=== PATIENT | female | born 1965 | race Caucasian/White ===

== ENCOUNTER 2024-07-16 07:37 | Inpatient (IN) ==
--- OUTSIDE RECORDS SUMMARY | 2024-07-16 07:51 | External Medical Summary | Summary of Care ---
Author Name Unknown Organization [facility] Address [address] [place] [address] Phone [phone] Care Team Providers Care Volunteer Patient Representative Name Role Phone BabarCherie mcnulty Maria Luz VIZCAINO Primary Care Provider Reason for Visit * Reason Comments Skin Check Pt presents today fo r her annual FBSC, pt denies having any new areas of concern at this time.Hx of DSAP, Multiple pigmented nevi, LSC Encounter Details Date Type Department Care Team (Latest Contact Info) Description 05/25/2024 12:40 PM EST Office [facility] [address] [facility] [place] [address] Enid Peralta PA-C [address] [place] [address] Disseminated superficial actinic porokeratosis (DSAP)*; Skin exam, screening for cancer; Seborrheic keratosis Allergies Active Allergy Reactions Criticality Noted Date Comments Sulfa Antibiotics 11/05/1999 Rash as a child documented as of this encounter (statuses as of 05/25/2024) Medications Cetirizine HCl 10 MG Oral Tablet Take 1 Tablet by mouth in the morning. Take 1 tab by mouth daily.. 9 Active Escitalopram Oxalate 20 MG Oral Tablet (Lexapro) Take 1 Tablet by mouth in the morning. 90 Tablet 3 4 Active Calcium 1000 + D 1000-20 MG-MCG Oral Tablet (Calcium Carb-Cholecalcif rhett) Take by mouth. Activ e Tums Extra Strength 750 750 MG Oral Tablet Chewable (calcium CARBonate) Take 1 Tablet by mouth in the morning. Active Multi-Day Oral Tablet Take 1 Tablet by mouth in the morning. With collagen. Active Betamethasone Dipropionate 0.05 % External Cream (Diprosone) Apply topically to affected area 2 times a day. To affected areas under breasts and abdomen 15 g 3 4 Active Levothyroxine Sodium 112 MCG Oral Tablet (Levoxyl) TAKE 1 TABLET BY MOUTH DAILY IN THE MORNING AT LEAST 30 MINS PRIOR TO BREAKFAST OR OTHER MEDS. 90 Tablet 3 4 Active Wegovy 0.25 MG/0.5ML Subcutaneous Solution Auto-injector (Semaglutide-Jose ght Management)Indic ations:Class 2 severe obesity due to excess calories with serious comorbidity and body mass index (BMI) of 38.0 to 38.9 in adult (HCC) Inject 0.25 mg under the skin once a week. 2 mL 5 4 Active Additional Information Patient not taking.Reported on 05/25/2024 Melatonin 5 MG Oral Tablet Take 1 Tablet by mouth at bedtime. Active Gentle Iron 28-60-0.008-0.4 MG Oral Capsule (Fe Bisgly-Vit C-Vit B12-FA) Take by mouth. A [facility] Hospital, Clinic, or Other Facility Administered Medication Ordered Dose Route Frequency Start Date End Date Status Albuterol Sulfate (Proventil) (2.5 MG/3ML) 0.083% inhalation solution 2.5 mgIndications:JACKSON (dyspnea on exertion) 2.5 mg NEBULIZER ONCE PRN 12/10/2023 12/09/2024 Act ashley documented as of this encounter (statuses as of 05/25/2024) Active Problems Problem Noted Date Diagnosed Date Screening for lipid disorders 12/10/2023 JACKSON (dyspnea on exertion) 12/10/2023 Restless leg 09/04/2023 Body mass index (BMI) 39.0-39.9, adult 4 At risk for osteoporosis 09/04/2023 Hypocalcemia 09/04/2023 Class 2 severe obesity with serious comorbidity and body mass index (BMI) of 35.0 to 35.9 in adult 06/05/2023 EDGAR (generalized anxiety disorder) 06/05/2023 Moderate episode of recurrent major depressive d isorder 06/05/2023 MDD (major depressive disorder), recurrent episo de, mild 06/05/2023 RODY (obstructive sleep apnea) 12/03/2022 Nocturnal hypoxemia 12/03/2022 Chest pain 09/03/2022 Low serum calcium 09/03/2022 Attention deficit 07/12/2022 Snoring 07/12/2022 History of thyroid cancer 05/24/2013 POSTSURGICAL HYPOTHYROID 01/17/2002 Other acne 11/24/2001 documented as of this encounter (statuses as of 05/25/2024) Resolved Problems Problem Noted Date Diagnosed Date Resolved Date Anxiety and depression 07/12/202209/03 Memory loss 07/12/2022 09/03/2022 Dermatitis 07/21/2013 05/07/2017 ADVANCE DIRECTIVE INFORMATION 09/30/2005 03/22/2024 Overview (09/30/2005): Booklet given. Gestational diabetes mellitus, antepartum 08/08/2003 06/25/2006 Overview (08/08/2003): 2002, during first Normal , first 04/06/200311/2006 MALIGN NEOPL THYROID 12/18/2001 015 Cervicitis 12/21/1999 06/25/2006 documented as of this encounter (statuses as of 05/25/2024) Immunizations Name Administration Dates Next Due COVID-19 mRNA, LNP-s, No Pre serve, 2-Dose Series (Forrst) 04/24/2021,08/07/2020,07/12/2020 COVID-19, mRNA, LNP-s, No Pr eserve, Ages 6 Mos-5 Yrs (Moderna) 02/02/2024 COVID-19, mRNA, LNP-s, PF, B ooster, 100mcg/0.5mg (Moderna) 10/12/2021 Covid-19, Mrna, Lnp-s, Pf, B ivalent, 30 Mcg, IM, 12 yrs and above (Pfizer) 02/06/2022 Seasonal Influenza Vac, Quad , Cell Cult, PF, 6 Mos and Up, IM, (Flucelvax Quad) 02/06/2022 Seasonal Influenza Vac., MDV , IM, 0.5 mL (Fluzone) 02/20/2015,02/10/2014,05/24/2013,2011,02/26/2010,05/09/2006 Seasonal Influenza, PF, 6 M & above, IM , (FluLaval or Fluzone) 03/14/2019,02/21/2018 Seasonal Influenza, Quadriva lent, No Preserve, IM 03/05/2017,05/06/2016 Seasonal Influenza, Quadriva lent, No Preserve, Peds 02/02/2024 TD - Tetanus/Diptheria (ADULT) 02/11/2003 TDAP (age 10 and older)(Boostrix) 05/06/2016 Zoster Vaccine Recombinant (Shingrix) 05/15/2022 ,11/20/2021 documented as of this encounter Social History Tobacco Use Types Packs/Day Years Used Date Smoking Tobacco: Never Smokeless Tobacco: Never Alcohol Use Standard Drinks/Week Comments No 0 (1 standard drink = 0.6 oz pur e alcohol) PHQ-2 Answer Date Recorded PHQ Adult Total Score 12 03/11/2024 Hunger Vital Sign Answer Date Recorded Within the past 12 months, y ou worried that your food would run out before you got the money to buy more. Never true 03/11/20 24 Within the past 12 months, t he food you bought just didn't last and you didn't have money to get more. Never true 03/11/2024 Childcare Answer Date Recorded Do you feel overwhelmed with taking care of a child, family member or friend? No 03/11/2024 Does your family need help f inding childcare? (Household - for ages 0-17 years) Not on file 03/11/2024 Clothing Answer Date Recorded Have you been unable to get clothing when it was really needed? No 03/11/2024 Is your family able to get c lothes or diapers when needed? (Household - for ages 0-17 years) Not on file 03/11/2024 Personal Safety Answer Date Recorded Do you feel unsafe or have concerns for your saf ety? No 03/11/2024 Do you have concerns for you r family's safety? (Household - for ages 0-17 years) Not on file 03/11/2024 Utilities Answer Date Recorded Do you have trouble paying y our heating, water, or electric bill? No 03/11/2024 Is your family able to pay t he heat, water, or electric bill? (Household - for ages 0-17 years) Not on file 03/11/2024 Does your family have access to good internet? (Household - for ages 0-17 years) Not on file 03/11/2024 Employment Status Answer Date Recorded Are you unemployed or without regular income? No 03/11/2024 Does the household have a re lar source of income? (Household - for ages 0-17 years) Not on file 03/11/2024 Social Connections Answer Date Recorded How often do you feel lonely or isolated from th ose around you? Never 03/11/2024 Financial Resource Strain Answer Date R ecorded Do you have any trouble payi ng for your medications, or do you think you might in the future? No 03/11/2024 Does your family have troubl e paying for medicine? (Household - for ages 0-17 years) Not on file 03/11/2024 Transportation Needs Answer Date Record ed Do you have trouble getting a ride to medical visits or work? (Adult - for ages 18 years and over) Not on file 03/11/2024 Does your family have a hard time getting a ride to doctors visits? (Household - for ages 0-17 years) Not on file 03/11/2024 Has lack of transportation k ept you from medical appointments, meetings, work, or from getting things needed for daily living? Check all that apply. No 03/11/2024 Do you (or your family) have trouble finding or paying for a ride (transportation)? (Household - for ages 0-17 years) Not on file 03/11/2024 Housing Stability Answer Date Recorded Do you currently live in a s helter or have no steady place to sleep at night? No 03/11/2024 Do you think you are at risk of becoming homeless? (Adult - for ages 18 years and over) Not on file 03/11/2024 Does your family worry about paying for your home or becoming homeless? (Household - for ages 0-17 years) Not on file 1 Are you homeless or worried that you might be in the future? No 03/11/2024 Are you (or your family) tala eless or worried that you might be in the future? (Household - for ages 0-17 years) Not on file Food Insecurity Answer Date Recorded Do you need food for this week? No 03/11/2024 Are you able to get enough f ood for your family? (Household - for ages 0-17 years) Not on file 03/11/2024 Does your family need food t his week? (Household - for ages 0-17 years) Not on file 03/11/2024 Do you always have enough fo od for your family? (Household - for ages 0-17 years) Not on file 03/11/2024 Education Answer Date Recorded What is the highest level of school you have completed or the highest degree you have received? 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 Date Last Appointment: 05/08/2023 (in office), Visit date not found (telemedicine) Hx of DSAP, controlled with moisturizing and sun protection No hx skin ca Father has DSAP as well REVIEW OF SYSTEMS: SKIN: No other new or changing moles. HEME/LYMPH: No new or enlarging lumps or bumps. MEDICA TIONS: Current Outpatient Medications Medication Sig Dispense Refill Cetirizine HCl 10 MG Oral Tablet Take 1 Tablet by mouth in the morning. Take 1 tab by mouth daily.. Escitalopram Oxalate 20 MG Oral Tablet (Lexapro) Take 1 Tablet by mouth in the morning. 90 Tablet 3 Calcium 1000 + D 1000-20 MG-MCG Oral Tablet (Calcium Carb-Cholecalciferol) Take by mouth. Tums Extra Strength 750 750 MG Oral Tablet Chewable (calcium CARBonate) Take 1 Tablet by mouth in the morning. Multi-Day Oral Tablet Take 1 Tablet by mouth in the morning. With collagen. Betamethasone Dipropionate 0.05 % External Cream (Diprosone) Apply topically to affected area 2 times a day. To affected areas under breasts and abdomen 15 g 3 Levothyroxine Sodium 112 MCG Oral Tablet (Levoxyl) TAKE 1 TABLET BY MOUTH DAILY IN THE MORNING AT LEAST 30 MINS PRIOR TO BREAKFAST OR OTHER MEDS. 90 Tablet 3 Melatonin 5 MG Oral Tablet Take 1 Tablet by mouth at bedtime. Gentle Iron 28-60-0.008-0.4 MG Oral Capsule (Fe Bisgly-Vit C-Vit B12-FA) Take by mouth. Wegovy 0.25 MG/0.5ML Subcutaneous Solution Auto-injector (Semaglutide-Weight Management) Inject 0.25 mg under the skin once a week. (Patient not taking: Reported on 05/25/2024) 2 mL 5 Current Facility-Administered Medications Medication Dose Route Frequency Provider Last Rate Last Admin Albuterol Sulfate (Proventil) (2.5 MG/3ML) 0.083% inhalation solution 2.5 mg 2.5 mg Nebulizer Once PRN 2.5 mg at 01/14/24 9666 ALLERG IES: Sulfa antibiotics OBJECTIVE: GEN: Healthy, alert, no distress, appears oriented, pleasant, and cooperative. SKIN: Detailed exam of hair, face including lids and lips, neck, chest, abdomen, back, bilateral upper ext. (arm, hand, fingers), bilateral lower ext. (leg, foot, toes), and palpation of scalp completed and are normal except: 1.Scattered benign appearing lesions over examined skin including waxy flesh- colored, greyish brownbenign and non-inflamed appearing stuck-on papules and plaques. 2. Lower legs- thin vieira scales to lower legs. No sign of malignancy ASSESS MENT/PLAN: 1. Sks. Benign nature was discussed and no further intervention needed. Advised to call with any changes. 2. Hx DSAP, no changes to the lesions. - enforced sun protection, pt compliant with sun protection Discussed sun protection with patient including proper use of sunscreens (30spf, reapply every 2 hours) and protective clothing. Follow-up: 1 year There were no barriers tolearning and no other pain was related to today's visit. The patient and/or person accompanying patient demonstrates understanding of the visit and treatment. Enid Peralta PA-C 05/25/2024 12:49 PM documented in this encounter Nursing Notes * Priti Carlos MED ASSIST - 05/25/2024 12:45 PM EST Chief Complaint Patient presents with Skin Check Pt presents today for her annual FBSC, pt denies having any new areas of concern at this time. Hx of DSAP, Multiple pigmented nevi, LSC documented in this encounter Miscellaneous Notes * Addendum Note - Priti Carlos MED ASSIST - 05/25/2024 3:29 PM ESTAddended by: PRITI CARLOS on: 05/25/2024 03:29 PM Modules accepted: Orders documented in this encounter Plan of Treatment Upcoming Encounters Date Type Department Care Team (Late st Contact Info) Description 09/09/2024 2:00 PM EDT Office Visit Family Practice [facility] [address] [facility] [place] [address] Cherie Castelan CRNP [address] [facility] [place] [address] 09/22/2024 11:20 AM EDT Office Visit Sleep Disorders Ctr [facility] [address] [place] [phone] Robbie Salinasarin Florencet, DO [address] [place] [address] 05/18/2025 9:15 AM EST Imaging Radiology [address], [place] [address] [place] [address] Health Maintenance Due Date Last Done Comments Hepatitis B Vaccine (1 of 3 - 19+ 3-dose series) 10/20/1986 Colonoscopy 10/20/2012 Fecal Occult Blood Test 10/20/2012 Sigmoidoscopy 10/20/2012 Pneumococcal Vaccine: 50+ Years (1 of 1 - PCV) 10/20/2017 COVID-19 Vaccine ( season) 2024 02/02/2024, 02/06/2022, 10/12/2021, Additional history exists Cologuard 04/02/2024 04/02/2021, 04/30/2018 Colorectal Cancer Screening 04/02/2024 TSH 08/25/2024 08/26/2023, 12/08/2022, 09/03/2022, Additional history exists Depression Monitoring 03/11/2025 03/11/2024 Mammogram 05/17/2025 05/17/2024, 04/19, 05/15/2022, Additional history exists DTap/Tdap Vaccines (2 - Td or Tdap) 05/06/2026 05/06/2016, 02/11/2003 Pap Smear 12/09/2026 12/10/2023, 05/20, 06/10/2017, Additional history exists Diabetes Screening 03/02/2027 03/02/2024, 0 07/12/2022, 11/20/2021, Additional history exists Cervical Cancer Screening 12/09/2028 HPV/Co-Test 12/09/2028 12/10/2023 Lipid Panel 03/02/2029 03/02/2024, 07/0 09/2021, 11/08/2020, Additional history exists Zoster Vaccines Completed 05/15/2022, 11/20/2021 Influenza Vaccine (FLU shot) Completed , 02/06/2022, 03/14/2019, Additional history exists HPV (Gardasil) Vaccine Aged Out No lo nger eligible based on patient's age to complete this topic MENINGOCOCCAL (MENACTRA/MENVEO) Aged Out No longer eligible based on patient's age to complete this topic documented as of this encounter Medical Devices Not on filedocumented as of this encounter Procedures Procedure Name Priority Date/Time Associated Diagnosis Comments DERM IMAGE (SITE) Routine 05/25/2024 Disseminated superficial actinic porokeratosis (DSAP) documented in this encounter Results * DERM IMAGE (SITE) (05/25/2024) 05/25/2024 Enid Peralta PA-C DIGITAL PHOTOGRAPHY Fin al Result documented in this encounter Visit Diagnoses Diagnosis Disseminated superficial actinic porokeratosis (DSAP)- Primary Skin exam, screening for cancer Screening for malignant neoplasm of the skin Seborrheic keratosis Other seborrheic keratosis Screening mammogram for breast cancer documented in this encounter Care Teams Volunteer Patient Representative Relationship Specialty Start Date End Date Cherie Castelan CRNP [address] [place] [address] PCP - General Nurse Practitioner 09/03/22 documented as of this encounter
--- OUTSIDE RECORDS SUMMARY | 2024-07-16 07:51 | External Medical Summary | Summary of Care ---
Author Name Unknown Organization [facility] Address [address] [place] [address] Phone [phone] Care Team Providers Care [facility] Sales Name Role Phone BabarCherie mcnulty Maria Luz VIZCAINO Primary Care Provider Reason for Visit * Reason Comments Skin Check Pt presents today fo r her annual FBSC, pt denies having any new areas of concern at this time.Hx of DSAP, Multiple pigmented nevi, LSC Encounter Details Date Type Department Care Team (Latest Contact Info) Description 05/25/2024 12:40 PM EST [facility] [address] [facility] [place] [address] Enid Peralta PA-C [address] [place] [address] Disseminated superficial actinic porokeratosis (DSAP)*; Skin exam, [...] Bisgly-Vit C-Vit B12-FA) Take by mouth. A [facility], Clinic, or Other Facility Administered [...] mRNA, LNP-s, No Pre serve, 2-Dose Series (Meetmeals) 04/24/2021,08/07/2020,07/12/2020 COVID-19, mRNA, LNP-s, No Pr eserve, [...] Influenza, Quadriva lent, No Preserve, Peds 02/02/2024 TDAP (age 10 and older)(Boostrix) 05/06/2016 Zoster [...] Master's degree (e.g., MA, MS, Alex, MEd, JANITORIAL ACCOUNT MANAGER, [employer]) 01/03/2023 Comments No Sex and Gender Information Value Date Recorded Sex Assigned at Female 07/09/2022 7:48 PM EST Legal Sex Female 5:38 AM EST Gender Identity Female 07/09/2022 7:48 PM EST Sexual Orientation Straight 07/09/2022 7: 48 PM EST 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 Not on file Not [...] Nebulizer Once PRN 2.5 mg at 01/14/24 0756 ALLERG IES: Sulfa antibiotics OBJECTIVE: GEN: Healthy, [...] pigmented nevi, LSC documented in this encounter Plan of Treatment Upcoming Encounters Date Type Department Care Team (Late st Contact Info) Description 09/09/2024 2:00 PM EDT Office Visit Family Practice [facility] [address] [place] [address] Cherie Castelan CRNP [address] [place] [address] 09/22/2024 11:20 AM EDT Office Visit Sleep Disorders Ctr [facility] [address] [place] [phone] Selma Salinas DO [address] [place] [address] 05/18/2025 9:15 AM EST Imaging Radiology [facility] [address] [facility], [place] [address] [place] [address] Health Maintenance Due Date Last Done Comments Hepatitis B Vaccine (1 of 3 - 19+ 3-dose series) 10/20/1986 Colonoscopy 10/20/2012 Fecal Occult Blood Test 10/20/2012 Sigmoidoscopy 10/20/2012 Pneumococcal Vaccine: 50+ Years (1 of 1 - PCV) 10/20/2017 COVID-19 Vaccine ( season) 2024 02/02/2024, 02/06/2022, 10/12/2021, Additional history exists Cologuard 04/02/2024 04/02/2021, 04/30/2018 Colorectal Cancer Screening 04/02/2024 TSH 08/25/2024 08/26/2023, 1208/2022, 09/03/2022, Additional history exists Depression Monitoring 03/11/2025 [...] DERM IMAGE (SITE) (05/25/2024) 05/25/2024 Enid Peralta PAHeriberto DIGITAL PHOTOGRAPHY Fin al Result documented in this encounter Visit Diagnoses Diagnosis Disseminated superficial actinic porokeratosis (DSAP)- Primary Skin exam, screening for cancer Screening for malignant neoplasm of the skin Seborrheic keratosis Other seborrheic keratosis Screening mammogram for breast cancer documented in this encounter Care Teams Medical Hospital Sales Relationship Specialty Start Date End Date Cherie Castelan CRNP [address] [facility] [place] [address] PCP - General Nurse Practitioner 09/03/22 documented as of this encounter
--- OUTSIDE RECORDS SUMMARY | 2024-07-16 07:51 | External Medical Summary | Summary of Care ---
Author Name Unknown Organization [facility] Address [address] [place] [address] Phone [phone] Care Team Providers Care Transportation Dispatch Manager Name Role Phone Cherie Castelan Primary Care Provider Reason for Visit * Reason Onset Date Comments Health Maintenance 05/04/2024 Encounter Details Date Type Department Care Team ([facility] Contact Info) Description 05/04/2024 Telephone Family Practice [facility] [address] [facility] [place] [address] Cherie Castelan CR[facility] [address] [facility] [facility] [address] [facility] Maintenance Allergies Active Allergy Reactions Criticality Noted Date Comments Sulfa Antibiotics 11/05/1999 Rash as a child documented as of this encounter (statuses as of 05/04/2024) Medications Cetirizine HCl 10 MG Oral Tablet [...] Wegovy 0.25 MG/0.5ML Subcutaneous Solution Auto-injector (Semaglutide-Jose t Management)Indic ations:Class 2 severe obesity due to excess calories with serious comorbidity and body mass index (BMI) of 38.0 to 38.9 in adult ([facility]) Inject 0.25 mg under the skin once a week. 2 mL 5 4 Active Additional Information Patient not taking.Reported on 12/10/2023 Melatonin 5 MG Oral Tablet Take 1 Tablet by mouth at bedtime. Active Gentle Iron 28-60-0.008-0.4 MG Oral Capsule (Fe Bisgly-Vit C-Vit B12-FA) Take by mouth. A [facility] Hospital, Clinic, or Other Facility Administered Medication Ordered Dose Route Frequency Start Date End Date Status Albuterol Sulfate (Proventil) (2.5 MG/3ML) 0.083% inhalation solution 2.5 mgIndications:JACKSON (dyspnea on exertion) 2.5 mg NEBULIZER ONCE PRN 12/10/2023 12/09/2024 Act ashley documented as of this encounter (statuses as of 05/04/2024) Active Problems Problem Noted Date Diagnosed Date [...] as of this encounter (statuses as of 05/04/2024) Resolved Problems Problem Noted Date Diagnosed Date Resolved Date Anxiety and depression 07/12/202209/03 Memory loss 07/12/2022 09/03/2022 Dermatitis 07/21/2013 05/07/2017 ADVANCE DIRECTIVE INFORMATION 09/30/2005 03/22/2024 Overview (09/30/2005): Booklet given. Gestational diabetes mellitus, antepartum 08/08/2003 06/25/2006 Overview (08/08/2003): 2003, during first Normal , first 04/06/200311/2006 MALIGN NEOPL THYROID 12/18/2001 015 Cervicitis 12/21/1999 06/25/2006 documented as of this encounter (statuses as of 05/04/2024) Immunizations Name Administration Dates Next Due COVID-19 mRNA, LNP-s, No Pre serve, 2-Dose Series ([employer]) 04/24/2021,08/07/2020,07/12/2020 COVID-19, mRNA, LNP-s, No Pr eserve, Ages 6 Mos-5 Yrs ([employer]) 02/02/2024 COVID-19, mRNA, LNP-s, PF, B ooster, 100mcg/0.5mg ([employer]) 10/12/2021 Covid-19, Mrna, Lnp-s, Pf, B ivalent, 30 Mcg, IM, 12 yrs and above ([employer]) 02/06/2022 Seasonal Influenza Vac, Quad , Cell [...] 03/11/2024 Does the household have a re gular source of income? 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 file Not on file Not on shira e documented as of this encounter Miscellaneous Notes * Telephone Encounter - Tana Caraballo LPN - 05/04/2024 11:50 AM EST Care Gaps Comprehensive Care Outreach Last Office/Telemedicine Visit: 03/11/2024 (in office), Visit date not found (telemedicine) Next Office Visit: 09/09/2024 Hemoglobin AIC Results: No results found for: "HEMOGLOBIN A1C" BP Readings from Last 1 Encounters: 03/11/24 118/76 Reviewed Health Maintenance below: Health Maintenance Topic Date Due Hepatitis B Vaccine (1 of 3 - 19+ 3-dose series) Never done COVID-19 Vaccine ( season) 2024 Colorectal Cancer Screening 04/02/2024 Mammogram 05/16/2024 TSH 08/25/2024 Cologuard due Mamm dec already scheduled Care Gap Outreach Action Taken: Left message and MyChart message sent documented in this encounter Plan of Treatment Upcoming Encounters Date Type Department Care Team (Late st Contact Info) Description 05/17/2024 9:00 AM EST Imaging Radiology [facility] 1st [facility] [address] [place] [address] 05/25/2024 12:40 PM EST Office Visit Dermatology [facility] [address] [place] [address] Enid Peralta PA-C [address] [facility] [place] [address] 09/09/2024 2:00 PM EDT Office Visit Family Practice [facility] [address] [place] [address] Cherie Castelan CRNP [address] [place] [address] 09/22/2024 11:20 AM EDT Office Visit Sleep Disorders Ctr [facility] [address] [place] [phone] Selma Salinas, [address] [place] [address] Health Maintenance Due Date Last Done Comments Hepatitis B Vaccine (1 of 3 - 19+ 3-dose series) 10/20/1986 Colonoscopy 10/20/2012 Fecal Occult Blood Test 10/20/2012 Sigmoidoscopy 10/20/2012 COVID-19 Vaccine ( season) 2024 02/02/2024, 02/06/2022, 10/12/2021, Additional history exists Cologuard 04/02/2024 04/02/2021, 04/30/2018 Colorectal Cancer Screening 04/02/2024 Mammogram 05/16/2024 05/16/2023, 04/19, 05/14/2021, Additional history exists TSH 08/25/2024 08/26/2023, 08/2022, 09/03/2022, Additional history exists Depression Monitoring 03/11/2025 03/11/2024 DTap/Tdap Vaccines (2 - Td or Tdap) [...] on patient's age to complete this topic Pneumococcal Vaccine: Pediatrics (0 to 5 Years) and At-Risk Patients (6 to 64 Years) Aged Out No longer eligible based on patient's age to complete this topic documented as of this encounter Medical Devices Not on filedocumented as of this encounter Care Teams Transportation Dispatch Manager Relationship Specialty Start Date End Date Cherie Castelan CRNP [address] [place] [address] PCP - General Nurse Practitioner 09/03/22 documented as of this encounter
--- OUTSIDE RECORDS SUMMARY | 2024-07-16 07:51 | External Medical Summary | Summary of Care ---
Author Name Unknown Organization [facility] Address [address] [place] [address] Phone [phone] Care Team Providers Care Specialist Wound Care Name Role Phone Cherie Hair Primary Care Provider Reason for Visit * Reason Onset Date Comments Medication Refill 07/06/2024 Encounter Details Date Type Department Care Team (Late st Contact Info) Description 07/06/[address] [facility] [address] [facility] [place] [address] Cherie Hair CRNP [address] [facility] [place] [address] Allergies Active Allergy Reactions Criticality Noted Date Comments Sulfa Antibiotics 11/05/1999 Rash as a child documented as of this encounter (statuses as of 07/07/2024) Medications Cetirizine HCl 10 MG Oral Tablet Take 1 Tablet by mouth in the morning. Take 1 tab by mouth daily.. 08/18/19 19 Active Calcium 1000 + D 1000-20 MG-MCG [...] under breasts and abdomen 15 g 3 08/29/19 24 Active Levothyroxine Sodium 112 MCG Oral Tablet (Levoxyl) TAKE 1 TABLET BY MOUTH DAILY IN THE MORNING AT LEAST 30 MINS PRIOR TO BREAKFAST OR OTHER MEDS. 90 Tablet 3 10/04/19 24 Active Wegovy 0.25 MG/0.5ML Subcutaneous Solution Auto-injector ([facility])Indic ations:Class 2 severe obesity due to excess calories with serious comorbidity and body mass index (BMI) of 38.0 to 38.9 in adult ([facility]) Inject 0.25 mg under the skin once a week. 2 mL 5 10/30/19 24 Active Additional Information Patient not taking.Reported on 05/25/2024 Melatonin 5 MG Oral Tablet Take 1 Tablet by mouth at bedtime. Active Gentle Iron 28-60-0.008-0.4 MG Oral Capsule (Fe Bisgly-Vit C-Vit B12-FA) Take by mouth. A ctive Escitalopram Oxalate 20 MG Oral Tablet (Lexapro) Take 1 Tablet by mouth in the morning. 90 Tablet 2 07/07/19 25 Active Escitalopram Oxalate 20 MG Oral Tablet (Lexapro) Take 1 Tablet by mouth in the morning. 90 Tablet 3 06/05/19 24 025 Discontin ued(Refil l) Hospital, Clinic, or Other Facility Administered Medication Ordered Dose Route Frequency Start Date End Date Status Albuterol Sulfate (Proventil) (2.5 MG/3ML) 0.083% inhalation solution 2.5 mgIndications:JACKSON (dyspnea on exertion) 2.5 mg NEBULIZER ONCE PRN 12/10/2023 12/09/2024 Act ashley documented as of this encounter (statuses as of 07/07/2024) Active Problems Problem Noted Date Diagnosed Date Screening for lipid disorders 12/10/2023 JACKSON (dyspnea on exertion) 12/10/2023 Restless leg 09/04/2023 Body mass index (BMI) 39.0-39.9, adult At risk for osteoporosis 09/04/2023 Hypocalcemia 09/04/2023 [...] as of this encounter (statuses as of 07/07/2024) Resolved Problems Problem Noted Date Diagnosed Date Resolved Date Anxiety and depression 07/12/202209/03 Memory loss 07/12/2022 09/03/2022 Dermatitis 07/21/2013 05/07/2017 ADVANCE DIRECTIVE INFORMATION 09/30/2005 03/22/2024 Overview (09/30/2005): Booklet given. Gestational diabetes mellitus, antepartum 08/08/2003 06/25/2006 Overview (08/08/2003): 2002, during first Normal , first 04/06/200311/2006 MALIGN NEOPL THYROID 12/18/2001 015 Cervicitis 12/21/1999 06/25/2006 documented as of this encounter (statuses as of 07/07/2024) Immunizations Name Administration Dates Next Due COVID-19 mRNA, LNP-s, No Pre serve, 2-Dose Series ([employer]) 04/24/2021,08/07/2020,07/12/2020 COVID-19, mRNA, LNP-s, No Pr eserve, Ages 6 Mos-5 Yrs (Moderna) 02/02/2024 COVID-19, mRNA, LNP-s, PF, B ooster, 100mcg/0.5mg ([employer]a) 10/12/2021 Covid-19, Mrna, Lnp-s, Pf, B ivalent, 30 Mcg, IM, 12 yrs and above ([employer]) 02/06/2022 Seasonal Influenza Vac, Quad , Cell [...] ages 0-17 years) Not on file 03/11/2024 Food Insecurity Answer Date Recorded Within the past 12 months, y ou worried that your food would run out before you got the money to buy more. Never true 03/11/20 Within the past 12 months, t he food you bought just didn't last and you didn't have money to get more. Never true 03/11/2024 Do you need food for this week? No 03/11/2024 Education Answer Date Recorded What is the highest level of school you have completed or the highest degree you have received? 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 [address] [place] [address] Cherie Hair CRNP [address] [place] [address] 09/22/2024 11:20 AM EDT Office Visit Sleep Disorders Ctr [facility] [address] [place] [phone] Selma Salinas DO [address] [place] [address] 05/18/2025 9:15 AM EST Imaging Radiology [facility]st [facility] [place] [address] [place] [phone] 05/26/2025 12:40 PM EST [facility] [address] [place] [address] Enid Peralta PA-C [address] [place] [address] Health Maintenance Due Date Last Done Comments Hepatitis B Vaccine (1 of 3 - 19+ 3-dose series) 10/20/1986 Colonoscopy 10/20/2012 Fecal Occult Blood Test 10/20/2012 Sigmoidoscopy 10/20/2012 Pneumococcal Vaccine: 50+ Years (1 of 1 - PCV) 10/20/2017 COVID-19 Vaccine (2023- season) 2024 02/02/2024, 02/06/2022, 10/12/2021, Additional history exists Cologuard 04/02/2024 04/02/2021, 04/30/2018 Colorectal Cancer Screening 04/02/2024 TSH 08/25/2024 08/26/2023, 120 08/2022, 09/03/2022, Additional history exists Depression Monitoring [...] on patient's age to complete this topic Meningitis B Vaccine (Bexsero/Trumemba) Aged Out No longer eligible based on patient's age to complete this topic documented as of this encounter Medical Devices Not on filedocumented as of this encounter Care Teams Specialist Wound Care Relationship Specialty Start Date End Date Cherie Hair CRNP [address] [place] [address] PCP - General Nurse Practitioner 09/03/22 documented as of this encounter
--- OUTSIDE RECORDS SUMMARY | 2024-07-16 07:51 | External Medical Summary | Summary of Care ---
Author Name Unknown Organization [facility] Address [address] [place] [address] Phone [phone] Care Team Providers Care Probation Counselor Name Role Phone BabarCherie mcnulty Maria Luz VIZCAINO Primary Care Provider Reason for Visit * Reason Comments Skin Check Pt presents today fo r her annual FBSC, pt denies having any new areas of concern at this time.Hx of DSAP, Multiple pigmented nevi, LSC Encounter Details Date Type Department Care Team (Latest Contact Info) Description 05/25/2024 12:40 PM EST [facility] [address] [facility] [place] [address] Enid Peralta PA-C [address] [place] [address] Disseminated superficial actinic porokeratosis (DSAP)*; Skin exam, screening for cancer; Seborrheic keratosis Allergies Active Allergy Reactions Criticality Noted Date Comments Sulfa Antibiotics 11/05/1999 Rash as a child documented as of this encounter (statuses as of 05/26/2024) Medications Cetirizine HCl 10 MG Oral Tablet [...] Bisgly-Vit C-Vit B12-FA) Take by mouth. A [facility], Clinic, or Other Facility Administered Medication Ordered Dose Route Frequency Start Date End Date Status Albuterol Sulfate (Proventil) (2.5 MG/3ML) 0.083% inhalation solution 2.5 mgIndications:JACKSON (dyspnea on exertion) 2.5 mg NEBULIZER ONCE PRN 12/10/2023 12/09/2024 Act ashley documented as of this encounter (statuses as of 05/26/2024) Active Problems Problem Noted Date Diagnosed Date [...] as of this encounter (statuses as of 05/26/2024) Resolved Problems Problem Noted Date Diagnosed Date Resolved Date Anxiety and depression 07/12/202209/03 Memory loss 07/12/2022 09/03/2022 Dermatitis 07/21/2013 05/07/2017 ADVANCE DIRECTIVE INFORMATION 09/30/2005 03/22/2024 Overview (09/30/2005): Booklet given. Gestational diabetes mellitus, antepartum 08/08/2003 06/25/2006 Overview (08/08/2003): 2002, during first Normal , first 04/06/200311/2006 MALIGN NEOPL THYROID 12/18/2001 015 Cervicitis 12/21/1999 06/25/2006 documented as of this encounter (statuses as of 05/26/2024) Immunizations Name Administration Dates Next Due COVID-19 mRNA, LNP-s, No Pre serve, 2-Dose Series ([employer]) 04/24/2021,08/07/2020,07/12/2020 COVID-19, mRNA, LNP-s, No Pr eserve, [...] Master's degree (e.g., MA, MS, Alex, MEd, GENETIC SUPERVISOR, TAYLOR) 01/03/2023 Comments No Sex and Gender Information Value Date Recorded Sex Assigned at Female 07/09/2022 7:48 PM EST Legal Sex Female 5:38 AM EST Gender Identity Female 07/09/2022 7:48 PM EST Sexual Orientation Straight 07/09/2022 7: 48 PM EST 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 [address] [place] [address] Cherie Castelan CRNP [address] [place] [address] 09/22/2024 11:20 AM EDT Office Visit Sleep Disorders Ctr [facility] 132 [facility] [place] [phone] Selma Salinas DO [address] [place] [address] 05/18/2025 9:15 AM EST Imaging Radiology [facility] 1st [facility] [address] [place] [address] 05/26/2025 12:40 PM EST Office Visit Dermatology [facility] [address] [place] [address] Enid Peralta PA-C [address] [place] [address] Health Maintenance Due Date Last Done Comments Hepatitis B Vaccine (1 of 3 - 19+ 3-dose series) 10/20/1986 Colonoscopy 10/20/2012 Fecal Occult Blood Test 10/20/2012 Sigmoidoscopy 10/20/2012 Pneumococcal Vaccine: 50+ Years (1 of 1 - PCV) 10/20/2017 COVID-19 Vaccine ( season) 2024 02/02/2024, 02/06/2022, 10/12/2021, Additional history exists Cologuard 04/02/2024 04/02/2021, 04/30/2018 Colorectal Cancer Screening 04/02/2024 TSH 08/25/2024 08/26/2023, 12/0 08/2022, 09/03/2022, Additional history exists Depression Monitoring [...] Routine 05/25/2024 Disseminated superficial actinic porokeratosis (DSAP) DERM IMAGE (SITE) Routine 05/25/2024 Disseminated superficial actinic porokeratosis (DSAP) documented in this encounter Results * DERM IMAGE (SITE) (05/25/2024) 05/25/2024 us Enid Peralta PA-C DIGITAL PHOTOGRAPHY Fin al Result * DERM IMAGE (SITE) (05/25/2024) 05/25/2024 Enid Peralta PA-C DIGITAL PHOTOGRAPHY Fin al Result documented in this encounter Visit Diagnoses Diagnosis Disseminated superficial actinic porokeratosis (DSAP)- Primary Skin exam, screening for cancer Screening for malignant neoplasm of the skin Seborrheic keratosis Other seborrheic keratosis Screening mammogram for breast cancer documented in this encounter Care Teams Probation Counselor Relationship Specialty Start Date End Date Cherie Castelan CRNP [address] [facility] [place] [address] PCP - General Nurse Practitioner 09/03/22 documented as of this encounter
--- OUTSIDE RECORDS SUMMARY | 2024-07-16 07:51 | External Medical Summary | Summary of Care ---
Author Name Unknown Organization [facility] Address [address] [place] [address] Phone [phone] Care Team Providers Care Attacher Name Role Phone BabarCherie mcnulty Maria Luz VIZCAINO Primary Care Provider Reason for Visit * Reason Comments Skin Check Pt presents today fo r her annual FBSC, pt denies having any new areas of concern at this time.Hx of DSAP, Multiple pigmented nevi, LSC Encounter Details Date Type Department Care Team (Latest Contact Info) Description 05/25/2024 12:40 PM EST [facility] [address] [facility] [place] [address] Enid Peralta PA-C [address] [place] [address] Disseminated superficial actinic porokeratosis (DSAP)*; Skin exam, [...] Bisgly-Vit C-Vit B12-FA) Take by mouth. 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 on file Not [...] 2:00 PM EDT Office Visit Family Practice [facility] [address] [place] [address] Cherie Castelan CRNP [address] [place] [address] 09/22/2024 11:20 AM EDT Office Visit Sleep Disorders Ctr [facility] [address] [place] [phone] Selma Salinas DO [address] [place] [address] 05/18/2025 9:15 AM EST Imaging Radiology [place] [facility]st [facility] [place] [address] [place] [address] Health Maintenance Due Date Last Done Comments [...] Not on filedocumented as of this encounter Visit Diagnoses Diagnosis Disseminated superficial actinic porokeratosis (DSAP)- Primary Skin exam, screening for cancer Screening for malignant neoplasm of the skin Seborrheic keratosis Other seborrheic keratosis Screening mammogram for breast cancer documented in this encounter Care Teams Attacher Relationship Specialty Start Date End Date Cherie Castelan CRNP [address] [place] [address] PCP - General Nurse Practitioner 09/03/22 documented as of this encounter
--- OUTSIDE RECORDS SUMMARY | 2024-07-16 07:52 | External Medical Summary | Summary of Care ---
Author Name Unknown Organization [facility] Address [address] [place] [address] Phone [phone] Care Team Providers Care Physical Therapist Aide Name Role Phone Babarhamlet Cheriesa Maria Luz VIZCAINO Primary Care Provider Reason for Referral * Evaluate & Treat - Unlimited Visits (Within 30 days (routine)) - Authorized Specialty Diagnoses / Procedures Referred By Arnoldo glass Referred To Contact Sports Medicine / Orthopedics Diagnoses Greater trochanteric pain syndrome SharerCarri PA-C [address] [place] [address] Referral ID Status Reason Start Date Expiration Date Visits Requested Visits Authorized [id number] Authorized Specialty Services Required 02/19/[phone] Question Answer What body part is the patient being seen for? Hip What condition is the patient being seen for? Sprain/Strain/Tear/Other Referral Priority Within 30 days (routine) Where should this appointment be scheduled? [facility] * Evaluate & Treat - Unlimited Visits (Within 10 days (routine)) - Authorized Specialty Diagnoses / Procedures Referred By Arnoldo glass Referred To Contact Physical Therapy / Physical Medicine And Rehab Diagnoses Greater trochanteric pain syndrome Carri Carmen PA-C [address] [place] [address] Referral ID Status Reason Start Date Expiration Date Visits Requested Visits Authorized [id number] Authorized Specialty Services Required 02/19/[phone] Question Answer Referral Priority Within 10 days (routine) Where should this appointment be scheduled? External Reason for Visit * Reason Comments NEW PATIENT PT is here for R hip pain. Pain occurs when she raises R leg. Pt states pain began 2w ago. Encounter Details Date Type Department Care Team (Late st Contact Info) Description 02/19/2024 12:30 PM EDT Office Visit Orthopaedics [facility] [address] [place] [address] Sharer, Carri Madison PA-C [address] [place] [id number] Greater trochanteric pain syndrome* Allergies Active Allergy Reactions Criticality Noted Date Comments Sulfa Antibiotics 11/05/1999 Rash as a child documented as of this encounter (statuses as of 02/19/2024) Medications Medication Sig Dispensed Refills Start Date End Date Status Cetirizine HCl 10 MG Oral Tablet Take 1 Tablet by mouth in the morning. Take 1 tab by mouth daily.. 08/17/2018 Active Escitalopram Oxalate 20 MG Oral Tablet (Lexapro) Take 1 Tablet by mouth in the morning. 90 Tablet 3 06/05/2023 Active Calcium 1000 + D 1000-20 MG-MCG Oral Tablet (Calcium Carb-Cholecalciferol ) Take by mouth. Active Tums Extra Strength 750 750 MG Oral Tablet Chewable (calcium CARBonate) Take 1 Tablet by mouth in the morning. Active Multi-Day Oral Tablet Take 1 Tablet by mouth in the morning. With collagen. Active Betamethasone Dipropionate 0.05 % External Cream (Diprosone) Apply topically to affected area 2 times a day. To affected areas under breasts and abdomen 15 g 3 08/29/2023 Active Levothyroxine Sodium 112 MCG Oral Tablet (Levoxyl) TAKE 1 TABLET BY MOUTH DAILY IN THE MORNING AT LEAST 30 MINS PRIOR TO BREAKFAST OR OTHER MEDS. 90 Tablet 3 10/04/2023 Active Wegovy 0.25 MG/0.5ML Subcutaneous Solution Auto-injector (Semaglutide-Weight Management)Indicatio ns:Class 2 severe obesity due to excess calories with serious comorbidity and body mass index (BMI) of 38.0 to 38.9 in adult ([facility]) Inject 0.25 mg under the skin once a week. 2 mL 5 10/30/2023 Active Additional Information Patient not taking.Reported on 12/10/2023 Melatonin 5 MG Oral Tablet Take 1 Tablet by mouth at bedtime. Active Hospital, Clinic, or Other Facility Administered Medication Ordered Dose Route Frequency Start Date End Date Status Albuterol Sulfate (Proventil) (2.5 MG/3ML) 0.083% inhalation solution 2.5 mgIndications:JACKSON (dyspnea on exertion) 2.5 mg NEBULIZER ONCE PRN 12/10/2023 12/09/2024 Act ashley documented as of this encounter (statuses as of 02/19/2024) Active Problems Problem Noted Date Diagnosed Date [...] Snoring 07/12/2022 History of thyroid cancer 05/24/2013 ADVANCE DIRECTIVE INFORMATION 09/30/2005 Overview: Booklet given. POSTSURGICAL HYPOTHYROID 01/17/2002 Other acne 11/24/2001 documented as of this encounter (statuses as of 02/19/2024) Resolved Problems Problem Noted Date Diagnosed Date Resolved Date Anxiety and depression 07/12/202209/03 Memory loss 07/12/2022 09/03/2022 Dermatitis 07/21/2013 05/07/2017 Gestational diabetes mellitus, antepartum 08/08/2003 06/25/2006 Overview: 2002, during first Normal , first 04/06/200311/2006 MALIGN NEOPL THYROID 12/18/2001 015 Cervicitis 12/21/1999 06/25/2006 documented as of this encounter (statuses as of 02/19/2024) Immunizations Name Administration Dates Next Due COVID-19 mRNA, LNP-s, No Pre serve, 2-Dose Series ([employer]) 04/24/2021,08/07/2020,07/12/2020 COVID-19, mRNA, LNP-s, No Pr eserve, Ages 6 Mos-5 Yrs ([employer]) 02/02/2024 COVID-19, mRNA, LNP-s, PF, B ooster, 100mcg/0.5mg ([employer]) 10/12/2021 Covid-19, Mrna, Lnp-s, Pf, B ivalent, 30 Mcg, IM, 12 yrs and above ([employer]) 02/06/2022 Seasonal Influenza Vac, Quad , Cell [...] Answer Date Recorded PHQ Adult Total Score 9 01/03/2023 Hunger Vital Sign Answer Date Recorded Within the past 12 months, y ou worried that your food would run out before you got the money to buy more. Never true 07/09/19 23 Within the past 12 months, t he food you bought just didn't last and you didn't have money to get more. Never true 07/09/2022 Utilities Answer Date Recorded Do you have trouble paying y our heating, water, or electric bill? (Adult - for ages 18 years and over) Not on file 11/04/2023 Is your family able to pay t he heat, water, or electric bill? (Household - for ages 0-17 years) Not on file 11/04/2023 Does your family have access to good internet? (Household - for ages 0-17 years) Not on file 11/04/2023 Social Connections Answer Date Recorded How often do you feel lonely or isolated from those around you? (Adult - for ages 18 years and over) Not on file 11/04/2023 Education Answer Date Recorded What is the highest level of school you have completed or the highest degree you have received? Master's degree (e.g., MA, MS, Alex, MEd, HEAD ANIMAL TRAINER, [employer]) 01/03/2023 Sex and Gender Information Value Date Recorded Sex Assigned at Female 07/09/2022 7:48 PM EST Gender Identity Female 07/09/2022 7:48 PM EST Sexual Orientation Straight 07/09/2022 7: 48 PM EST Job Start Date Occupation Industry Not on file Not on file Not on file documented as of this encounter Patient Instructions * Patient Instructions* Carri Carmen PA-C - 02/19/2024 1:12 PM EDT documented in this encounter Progress Notes * Carri Carmen PA-C - 02/19/2024 12:52 PM EDT Lexie Arias is a 58 year old female who presents for consultation to [facility] for right hip injury/pain. Consult requested by Self . Lexie Arias is here unaccompanied History: Patient reports pain started right hip pain started about 2 weeks ago. Patient denies any injury orchange in activity level. She complains of lateral hip pain. Symptoms worsened with position changes. Recalls episode of similar symptoms which resolved without intervention. She denies any other hipinjuries. She denies back pain, numbness, tingling. Review of systems: All others negative except those noted above in HPI. Review of patient's allergies indicates: Allergen Reactions Sulfa Antibiotics Rash as a child Current Outpatient Medications Medication Sig Dispense Refill [...] BREAKFAST OR OTHER MEDS. 90 Tablet 3 Wegovy 0.25 MG/0.5ML Subcutaneous Solution Auto-injector (Semaglutide-Weight Management) Inject 0.25 mg under the skin once a week. (Patient not taking: Reported on 12/10/2023) 2 mL 5 Melatonin 5 MG Oral Tablet Take 1 Tablet by mouth at bedtime. Current Facility-Administered Medications Medication Dose Route Frequency Provider Last Rate Last Admin Albuterol Sulfate (Proventil) (2.5 MG/3ML) 0.083% inhalation solution 2.5 mg 2.5 mg Nebulizer Once PRN 2.5 mg at 01/14/24 2326 Past Medical History: Diagnosis Date Calculus of kidney Gestational diabetes mellitus, antepartum 2002, during first Malignant neoplasm of thyroid gland (HCC) 2002 Papillary thyroid cancer, S/P total thyroidectomy 01/14/02 Other acne Acne Postsurgical hypothyroidism Vesicoureteral reflux, unspecified or without reflux nephropathy rn radiation Patient Active Problem List Diagnosis Other acne POSTSURGICAL HYPOTHYROID ADVANCE DIRECTIVE INFORMATION History of thyroid cancer Attention deficit Snoring Chest pain Low serum calcium RODY (obstructive sleep apnea) Nocturnal hypoxemia Class 2 severe obesity with serious comorbidity and body mass index (BMI) of 35.0 to 35.9 in adult (HCC) EDGAR (generalized anxiety disorder) Moderate episode of recurrent major depressive disorder (HCC) MDD (major depressive disorder), recurrent episode, mild (HCC) Restless leg Body mass index (BMI) 39.0-39.9, adult At risk for osteoporosis Hypocalcemia Screening for lipid disorders JACKSON (dyspnea on exertion) Past Surgical History: Procedure Laterality Date INFORMATION removal of " cyst on left miles above left eyebrow, childhood REVISION OF KIDNEY/URETER, SIMPLE VUR surgery at age 3 1/2 Social History Socioeconomic History Marital status: Spouse name: Maxx Number of children: 2 Years of education: Not on file Highest education level: Master's degree (e.g., MA, MS, Alex, MEd, HEAD ANIMAL TRAINER, [employer]) Occupational History 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 no domestic violence Other Topics Concern Not on file Social History Narrative Not on file Social Determinants of Health Financial Resource Strain: Not on file Food Insecurity: No Food Insecurity (07/09/2022) Hunger Vital Sign Worried About Running Out of Food in the Last Year: Never true Ran Out of Food in the Last Year: Never true Transportation Needs: Not on file Social Connections: Unknown (11/04/2023) Social Connections How often do you feel lonely or isolated from those around you? (Adult - for ages 18 years and over): Not on file Housing Stability: Not on file Family History Problem Relation Name Age of Onset Musculo-skeletal Disorder Mother osteoporosis Breast Cancer Mother 61 Other (high cholesterol) Father Other (Other) Father pt denies hx of skin cancer for parents Family History; none relevant to today's HPI Objective: Physical Exam There were no vitals filed for this visit. Estimated body mass index is 39.32 kg/m as calculated from the following: Height as of an earlier encounter on 02/19/24: 1.575 m (5' 2"). Weight as of an earlier encounter on 02/19/24: 97.5 kg (215 lb). General: generally well-nourished and in no acute distress HEENT: normocephalic, atraumatic, sclera anicteric. Psych: mood and affect normal , cooperative Card: Peripheral pulses: normal in affected extremity (s) Resp: equal chest rise, non-tachypneic, non-labored breathing Skin: no rash, normal Neuro: Sensation: normal on affected extremity (s) MSK: Gait/station/stance: normal reciprocal gait, non antalgic without an assistive device on smooth flat indoor surface. Hip Exam Inspection: No obvious deformity, no redness, swelling, warmth, bruising, abrasion. Palpation: Minimal tenderness of the greater trochanter bilaterally ROM: normal and symmetric in actively flexion, extension, internal and external rotation in Bilateral Strength: Abduction: R - 5/5 L - 5/5 Internal Rotation: R - 5/5 L - 5/5 Quads: R - 5/5 L - 5/5 Hams: R - 5/5 L - 5/5 Adduction: R - 5/5 L - 5/5 Single leg squat balance and control is fair Trendelenburg negative Bilateral Special Tests: Log Roll: negative Bilateral GABRIEL: negative Bilateral FADIR: negative Bilateral. Radiology (I have personally reviewed the following films): X-rays of the right hip reviewed with patient. Those x-rays show no acute fracture or dislocation. No significant degenerative changes noted. Assessment and Plan: Greater trochanteric pain syndrome (Primary) - XR HIP UNILAT 2-3 VIEWS INCLUDING AP PELVIS - PHYSICAL THERAPY REFERRAL OP - SPORTS MEDICINE REFERRAL OP Recommend course of physical therapy. Patient will follow up with Primary Care Sports Medicine if symptoms fail to improve. Follow Up: Return for Right Hip pain Follow-up with Dr Sampson, Dr Birmingham, or Dr Evans 6-8 weeks . | For: Right Hip pain Follow-up with Dr Sampson, Dr Birmingham, or Dr Evans 6-8 weeks Carri Carmen PA-C [facility] [place], [place] documented in this encounter Nursing Notes * Aquilino Chin CMA - 02/19/2024 12:32 PM EDT PT is here for R hip pain. Pain occurs when she raises R leg. Pt states pain began 2w ago. documented in this encounter Plan of Treatment Upcoming Encounters Date Type Department Care Team (Late st Contact Info) Description 03/11/2024 2:00 PM EDT Office Visit Family Practice [facility] [address] [address] Cherie Castelan CRNP [address] [place] [address] 04/02/2024 12:30 PM EST Office Visit Orthopaedics [facility] [address] [place] [address] Jerrod Evans MD [address] [place] [address] 04/12/2024 2:00 PM EST Imaging Cardiac Studies, [facility] [address] [place] [address] 05/17/2024 9:00 AM EST Imaging Radiology [facility] 1st Floor, [place] [address] [place] [address] 05/25/2024 12:40 PM EST Office Visit Dermatology [facility] [address] [place] [address] Enid Peralta PA-C [address] [place] [address] 09/22/2024 11:20 AM EDT Office Visit [facility] [address] [place] [phone] Selma Salinas DO [address] [place] [address] Pending Results Name Type Priority Associated Diagnoses Date /Time XR HIP UNILAT 2-3 VIEWS INCLUDING AP PELVIS Medical Imaging Routine Greater trochanteric pain syndrome 02/19/2024 12:47 PM EDT Scheduled Referrals Name Type Priority Associated Diagnoses Orde r Schedule PHYSICAL THERAPY REFERRAL OP Referral Within 10 days (routine) Greater trochanteric pain syndrome Ordered: 02/19/2024 SPORTS MEDICINE REFERRAL OP Referral Within 30 days (routine) Greater trochanteric pain syndrome Ordered: 02/19/2024 Health Maintenance Due Date Last Done Comments Hepatitis B Vaccine (1 of 3 - 19+ 3-dose series) 10/20/1986 Colonoscopy 10/20/2012 Fecal Occult Blood Test 10/20/2012 Sigmoidoscopy 10/20/2012 Depression Monitoring 01/04/2024 01/03/2023 COVID-19 Vaccine ( season) 2024 02/02/2024, 02/06/2022, 10/12/2021, Additional history exists Cologuard 04/02/2024 04/02/2021, 04/30/2018 Colorectal Cancer Screening 04/02/2024 Mammogram 05/16/2024 05/16/2023, 04/19, 05/14/2021, Additional history exists TSH 08/25/2024 08/26/2023, 1208/2022, 09/03/2022, Additional history exists Diabetes Screening 07/12/2025 07/12/2022, 0 11/20/2021, 11/20/2021, Additional history exists DTap/Tdap Vaccines (2 - Td or Tdap) 05/06/2026 05/06/2016, 02/11/2003 Lipid Panel 11/20/2026 11/20/2021, 10/18, 05/11/2020, Additional history exists Pap Smear 12/09/2026 12/10/2023, 05/20, 06/10/2017, Additional history exists Cervical Cancer Screening 12/09/2028 HPV/Co-Test 12/09/2028 12/10/2023 Zoster Vaccines Completed 05/15/2022, 11/20/2021 Influenza Vaccine [...] as of this encounter Visit Diagnoses Diagnosis Greater trochanteric pain syndrome- Primary documented in this encounter Care Teams Physical Therapist Aide Relationship Specialty Start Date End Date Cherie Castelan CRNP [address] [place] [address] PCP - General Nurse Practitioner 09/03/22 documented as of this encounter
--- OUTSIDE RECORDS SUMMARY | 2024-07-16 07:52 | External Medical Summary | Summary of Care ---
Author Name Unknown Organization [facility] Address [address] [place] [address] Phone [phone] Care Team Providers Care Keno Attendant Name Role Phone Cherie Castelan Maria Luz CARRILLO Primary Care Provider Reason for Visit * Reason Comments Follow Up Return sleep.RODY. CP AP. No complaints. Noticeably tired over all. Encounter Details Date Type Department Care Team (Late st Contact Info) Description 02/19/2024 11:40 AM EDT Office Visit Sleep Disorders Ctr [facility] [address] [facility] [place] [address] Selma Salinas [address] [place] [address] Obstructive sleep apnea*; Fatigue, unspecified type; Periodic limb movements of sleep; Disorder of iron metabolism, unspecified Allergies Active Allergy Reactions Criticality Noted Date [...] 38.0 to 38.9 in adult ([facility]) Inject 0.25 mg under the skin [...] mRNA, LNP-s, No Pre serve, 2-Dose Series ([employer]) 04/24/2021,08/07/2020,07/12/2020 COVID-19, mRNA, LNP-s, No Pr eserve, Ages 6 Mos-5 Yrs ([employer]) 02/02/2024 COVID-19, mRNA, LNP-s, PF, B ooster, 100mcg/0.5mg ([employer]) 10/12/2021 Covid-19, Mrna, Lnp-s, Pf, B ivalent, 30 Mcg, IM, 12 yrs and above ([employer]) 02/06/2022 Seasonal Influenza Vac, Quad , Cell [...] Master's degree (e.g., MA, MS, Alex, MEd, HAND BUTTON SPLITTER, TAYLOR) 01/03/2023 Sex and Gender Information Value Date Recorded Sex Assigned at Female 07/09/2022 7:48 PM EST Gender Identity Female 07/09/2022 7:48 PM EST Sexual Orientation Straight 07/09/2022 7: 48 PM EST Job Start Date Occupation Industry Not on file Not on file Not on file documented as of this encounter Last Filed Vital Signs Vital Sign Reading Time Taken Comments Blood Pressure 108/62 02/19/2024 11:34 AM EDT Pulse 80 02/19/2024 11:34 AM EDT Temperature 36.5 C (97.7 F) 02/19/2024 11:34 AM E DT Respiratory Rate 16 02/19/2024 11:34 AM EDT Oxygen Saturation 97% 02/19/2024 11:34 AM EDT Inhaled Oxygen Concentration - - Weight 97.5 kg (215 lb) 02/19/2024 11:34 AM EDT Height 157.5 cm (5' 2") 02/19/2024 11:34 AM EDT Body Mass Index 39.32 02/19/2024 11:34 AM EDT documented in this encounter Progress Notes * Selma Salinas, - 02/19/2024 11:38 AM EDT Sleep Medicine Follow-Up HISTORY: Lexie Arias is a 58 year old female for follow up of severe RODY. Initially seen 08/15/22 with snoring, witnessed apneas, intermittent fatigue. [place] 6, FOSQ 32. HST 11/20/22: [facility](4%) 47.5, SpO2 lanny 74%, time <89% 25 min. Initially tried CPAP, but was not tolerated. Titration study 04/07/23: TST < 3 hours. Titrated to CPAP 6 cwp; no supine sleep at the final setting. PLMI 37.1, PLMAI 3.1. Started CPAP 6-10 cmH2O. (Adjusted order to 4-8 cwp at patient's request, however, it looks like the original prescription is the one that went through, as her device is set to 6-10 cwp.) 08/20/23: using CPAP 6-10 cwp, with improvement in tiredness and cognition. [place] 7. Using CPAP 6-10 cwp. She still feels very tired. Subjective PAP adherence: good Sleep refreshing on PAP: still not as rested as she would like Snoring on PAP: she does not think so Mask leak: no Dry nose or dry mouth: a little bit, not bad, often a little congested. Use humidifier? usually Aerophagia: no Morning headaches: no RLS symptoms: sometimes, might be related to depression medication. Maybe once every 2 weeks makes it harder to get to sleep. Recent weight change: no She also notes she is a night owl, sleeps better on a later schedule compared to the time she needsto be up for morning ride to work. Can sleep in hours later on a day off, if has the opportunity. [place] Sleepiness Scale: 8 Travel Screening Question 02/19/2024 11:20 AM EDT - Filed by Patient Do you have any of the following new or worsening symptoms? None of these Have you recently been in contact with someone who was sick? No / Unsure [place] Sleepiness Scale Question 02/19/2024 11:31 AM EDT - Filed by Zoe Orozco LPN What is the chance you will doze off in the following situation? Sitting and reading Slight chance of dozing Watching TV Slight chance of dozing Sitting inactive in a public place, such as a theater or meeting No chance of dozing As a passenger in a car for an hour without a break High chance of dozing Lying down to rest in the afternoon when circumstances permit Moderate chance of dozing When sitting and talking to someone No chance of dozing When sitting quietly after lunch without alcohol Slight chance of dozing In a car, while stopped for a few minutes in traffic No chance of dozing Score (range: 0 - 24) 8 Flu Vaccine Questionnaire Question 02/19/2024 11:32 AM EDT - Filed by Zoe Orozco LPN Get your flu shot at your upcoming appointment. Please select one of the options below. I already received my flu shot CPAP Compliance: Report date: 02/18/24 % total days used: 100% % days used > 4 hours: 90% Average hours per day used: 7h 19m Large leak: no AHI: 4.4 /hr Median pressure: 9.4 cmH2O 95%ile pressure: 9.7 cmH2O Pressure settin-10 cmH2O Equipment: DME Provider is P Uses a [employer] 11. Additional changes in health in the interim of care: no Patient Active Problem List Diagnosis Other acne [...] for lipid disorders JACKSON (dyspnea on exertion) Current Outpatient Medications Medication Sig Dispense Refill Melatonin 5 MG Oral Tablet Take 1 Tablet by mouth at bedtime. Levothyroxine Sodium 112 MCG Oral Tablet (Levoxyl) TAKE 1 TABLET BY MOUTH DAILY IN THE MORNING AT LEAST 30 MINS PRIOR TO BREAKFAST OR OTHER MEDS. 90 Tablet 3 Betamethasone Dipropionate 0.05 % External Cream (Diprosone) Apply topically to affected area 2 times a day. To affected areas under breasts and abdomen 15 g 3 Calcium 1000 + D 1000-20 MG-MCG Oral Tablet (Calcium Carb-Cholecalciferol) Take by mouth. Multi-Day Oral Tablet Take 1 Tablet by mouth in the morning. With collagen. Tums Extra Strength 750 750 MG Oral Tablet Chewable (calcium CARBonate) Take 1 Tablet by mouth in the morning. Escitalopram Oxalate 20 MG Oral Tablet (Lexapro) Take 1 Tablet by mouth in the morning. 90 Tablet 3 Cetirizine HCl 10 MG Oral Tablet Take 1 Tablet by mouth in the morning. Take 1 tab by mouth daily.. Wegovy 0.25 MG/0.5ML Subcutaneous Solution Auto-injector (Semaglutide-Weight Management) Inject 0.25 mg under the skin once a week. (Patient not taking: Reported on 12/10/2023) 2 mL 5 Current Facility-Administered Medications Medication Dose Route Frequency Provider Last Rate Last Admin Albuterol Sulfate (Proventil) (2.5 MG/3ML) 0.083% inhalation solution 2.5 mg 2.5 mg Nebulizer Once PRN 2.5 mg at 01/14/24 0756 Considering starting Wegovy (has not taken yet) PHYSICAL EXAM: Filed Vitals: 02/19/24 1134 BP: 108/62 Pulse: 80 Resp: 16 Temp: 36.5 C (97.7 F) TempSrc: Tympanic SpO2: 97% Weight: 97.5 kg (215 lb) Height: 1.575 m (5' 2") Body mass index is 39.32 kg/m. General: alert, no acute distress Head: NC/AT Lungs: normal respiratory effort Neuro: speech clear and appropriate ASSESSMENT/PLAN: Obstructive sleep apnea - good adherence; encourage continued use of CPAP with all sleep - good objective efficacy of therapy, though fatigue persists; adjust PAP to 8- 12 cmH2O - DME: [employer] - Routine cleaning and change of supplies as needed. - Continue to avoid driving when feeling sleepy/drowsy. PLMS Occasional RLS sxs Persistent fatigue - check iron screen w/ ferritin (she is planning to have labs done in the next week or so); MyG with results - she will also try melatonin 3-5 mg 1 hour P/T planned bedtime - consider gabapentin 100 -> 200 mg nightly if iron levels at goal and sleep not improving with melatonin. Follow-up with Sleep Medicine in 3 months. Selma Salinas DO documented in this encounter Nursing Notes * Zoe Orozco LPN - 02/19/2024 11:36 AM EDT Chief Complaint Patient presents with Follow Up Return sleep.RODY. CPAP. No complaints. Noticeably tired over all. Travel Screening Question 02/19/2024 11:20 AM EDT - Filed by Patient Do you have any of the following new or worsening symptoms? None of these Have you recently been in contact with someone who was sick? No / Unsure [place] Sleepiness Scale Question 02/19/2024 11:31 AM EDT - Filed by Zoe Orozco LPN What is the chance you will doze off in the following situation? Sitting and reading Slight chance of dozing Watching TV Slight chance of dozing Sitting inactive in a public place, such as a theater or meeting No chance of dozing As a passenger in a car for an hour without a break High chance of dozing Lying down to rest in the afternoon when circumstances permit Moderate chance of dozing When sitting and talking to someone No chance of dozing When sitting quietly after lunch without alcohol Slight chance of dozing In a car, while stopped for a few minutes in traffic No chance of dozing Score (range: 0 - 24) 8 Flu Vaccine Questionnaire Question 02/19/2024 11:32 AM EDT - Filed by Zoe Orozco LPN Get your flu shot at your upcoming appointment. Please select one of the options below. I already received my flu shot documented in this encounter Plan of Treatment Upcoming Encounters Date Type Department Care Team (Late st Contact Info) Description 03/11/2024 2:00 PM EDT Office Visit Family Practice [facility] [address] [facility] [place] [address] Cherie Castelan CRNP [address] [place] [address] 04/12/2024 2:00 PM EST Imaging Cardiac Studies, [facility] [address] [facility] [place] [address] 05/17/2024 9:00 AM EST Imaging [facility] [address] [facility] [place] [address] 05/25/2024 12:40 PM EST Office Visit Dermatology [facility] [address] [place] [address] Enid Peralta PA-C [address] [place] [address] 09/22/2024 11:20 AM EDT Office Visit Sleep Disorders Ctr [facility] [address] [facility] [place] [phone] Selma Salinas DO [address] [place] [address] Scheduled Orders Name Type Priority Associated Diagnoses Orde r Schedule IRON SCREEN, INCLUDING TIBC Lab Routine Fatigue, unspecified type Periodic limb movements of sleep Disorder of iron metabolism, unspecified Expected: 02/20/2024 (Approximate), Expires: 02/18/2025 FERRITIN Lab Routine Fatigue, unspecified type Periodic limb movements of sleep Disorder of iron metabolism, unspecified Expected: 02/20/2024 (Approximate), Expires: 02/18/2025 Health Maintenance Due Date Last Done Comments Hepatitis B Vaccine (1 of 3 - 19+ 3-dose series) 10/20/1986 Colonoscopy 10/20/2012 Fecal Occult Blood Test 10/20/2012 Sigmoidoscopy 10/20/2012 Depression Monitoring 01/04/2024 01/03/2023 COVID-19 Vaccine ( season) 2024 02/02/2024, 02/06/2022, 10/12/2021, Additional history exists Cologuard 04/02/2024 04/02/2021, 04/30/2018 Colorectal Cancer Screening 04/02/2024 Mammogram 05/16/2024 05/16/2023, 04/19, 05/14/2021, Additional history exists TSH 08/25/2024 08/26/2023, 12/0 08/2022, 09/03/2022, Additional history exists Diabetes Screening 07/12/2025 [...] as of this encounter Visit Diagnoses Diagnosis Obstructive sleep apnea- Primary Obstructive sleep apnea (adult) (pediatric) Fatigue, unspecified type Periodic limb movements of sleep Periodic limb movement disorder Disorder of iron metabolism, unspecified documented in this encounter Care Teams Keno Attendant Relationship Specialty Start Date End Date Cherie Castelan CRNP [address] [place] [address] PCP - General Nurse Practitioner 09/03/22 documented as of this encounter
--- OUTSIDE RECORDS SUMMARY | 2024-07-16 07:52 | External Medical Summary | Summary of Care ---
Author Name Unknown Organization [facility] Address [address] [place] [address] Phone [phone] Care Team Providers Care Cutting Machine Operator Name Role Phone Cherie Castelan Maria Luz VIZCAINO Primary Care Provider Reason for Visit * Reason Onset Date Comments Durable Medical Equipment 02/19/2024 CPAP s upplies and pressure Encounter Details Date Type Department Care Team (Late st Contact Info) Description 02/19/2024 Telephone [facility] Disorders [facility]tr [facility] [address] [facility] [phone] Selma Salinas DO [address] [facility] [place] [address] Durable Medical Equipment (CPAP supplies a... Allergies Active Allergy Reactions Criticality Noted Date [...] to 38.9 in adult ([facility]) Inject 0.25 mg under the skin [...] mRNA, LNP-s, No Pre serve, 2-Dose Series ([employer]) 04/24/2021,08/07/2020,07/12/2020 COVID-19, mRNA, LNP-s, No Pr eserve, Ages 6 Mos-5 Yrs ([employer]) 02/02/2024 COVID-19, mRNA, LNP-s, PF, B ooster, 100mcg/0.5mg ([employer]) 10/12/2021 Covid-19, Mrna, Lnp-s, Pf, B ivalent, 30 Mcg, IM, 12 yrs and above ([employer]) 02/06/2022 Seasonal Influenza Vac, Quad , Cell [...] Master's degree (e.g., MA, MS, Alex, MEd, SET DESIGNER, TAYLOR) 01/03/2023 Sex and Gender Information Value Date Recorded Sex Assigned at Female 07/09/2022 7:48 PM EST Gender Identity Female 07/09/2022 7:48 PM EST Sexual Orientation Straight 07/09/2022 7: 48 PM EST Job Start Date Occupation Industry Not on file Not on file Not on file documented as of this encounter Miscellaneous Notes * Telephone Encounter - Becki Mahmood OSA - 02/19/2024 1:18 PM EDT DME order for CPAP pressure change and supplies submitted to [facility]. documented in this encounter Plan of Treatment Upcoming Encounters Date Type Department Care Team (Late st Contact Info) Description 03/11/2024 2:00 PM EDT Office Visit Family Practice [facility] [address] [place] [address] Cherie Castelan CRNP [address] [place] [address] 04/02/2024 12:30 PM EST Office Visit Orthopaedics [facility] [address] [place] [address] Jerrod Evans MD [address] [place] [address] 04/12/2024 2:00 PM EST Imaging Cardiac Studies, [facility] [address] [place] [address] 05/17/2024 9:00 AM EST Imaging Radiology [facility] 1st Floor, [place] [address] [facility] [place] [address] 05/25/2024 12:40 PM EST [facility] [address] [place] [address] Enid Peralta PA-C [address] [place] [address] 09/22/2024 11:20 AM EDT Office Visit Sleep Disorders Ctr [facility] [place] [address] [place] [phone] Selma Salinas, DO [address] [place] [address] Health Maintenance Due Date Last Done Comments [...] 08/25/2024 08/26/2023, 08/2022, 09/03/2022, Additional history exists Diabetes Screening [...] filedocumented as of this encounter Care Teams Cutting Machine Operator Relationship Specialty Start Date End Date Cherie Castelan CRNP [address] [place] [address] PCP - General Nurse Practitioner 09/03/22 documented as of this encounter
--- OUTSIDE RECORDS SUMMARY | 2024-07-16 07:52 | External Medical Summary | Summary of Care ---
Author Name Unknown Organization [facility] Address [address] [place] [address] Phone [phone] Care Team Providers Care Special Effects Makeup Artist Name Role Phone Cherie Castelan Primary Care Provider Encounter Details Date Type Department Care Team ([facility] Contact Info) Description 03/02/2024 Result Scan Unspecified Department Selma Salinas, DO [address] [facility] [place] [address] <No scans attached> Allergies Active Allergy Reactions Criticality Noted Date Comments Sulfa Antibiotics 11/05/1999 Rash as a child documented as of this encounter (statuses as of 03/03/2024) Medications Medication Sig Dispensed Refills Start Date [...] as of this encounter (statuses as of 03/03/2024) Active Problems Problem Noted Date Diagnosed Date [...] as of this encounter (statuses as of 03/03/2024) Resolved Problems Problem Noted Date Diagnosed Date Resolved Date Anxiety and depression 07/12/202209/03 Memory loss 07/12/2022 09/03/2022 Dermatitis 07/21/2013 05/07/2017 Gestational diabetes mellitus, antepartum 08/08/2003 06/25/2006 Overview: 2002, during first Normal , first 04/06/200311/2006 MALIGN NEOPL THYROID 12/18/2001 015 Cervicitis 12/21/1999 06/25/2006 documented as of this encounter (statuses as of 03/03/2024) Immunizations Name Administration Dates Next Due COVID-19 mRNA, LNP-s, No Pre serve, 2-Dose Series ([employer]) 04/24/2021,08/07/2020,07/12/2020 COVID-19, mRNA, LNP-s, No Pr eserve, Ages 6 Mos-5 Yrs ([employer]) 02/02/2024 COVID-19, mRNA, LNP-s, PF, B ooster, 100mcg/0.5mg ([employer]) 10/12/2021 Covid-19, Mrna, Lnp-s, Pf, B ivalent, 30 Mcg, IM, 12 yrs and above ([employer]) 02/06/2022 Seasonal Influenza Vac, Quad , Cell [...] Master's degree (e.g., MA, MS, Alex, MEd, BATTERY VENT PLUG INSERTER, TAYLOR) 01/03/2023 Sex and Gender Information Value Date Recorded Sex Assigned at Female 07/09/2022 7:48 PM EST Gender Identity Female 07/09/2022 7:48 PM EST Sexual Orientation Straight 07/09/2022 7: 48 PM EST Job Start Date Occupation Industry Not on file Not on file Not on file documented as of this encounter Plan of Treatment Upcoming Encounters Date Type Department Care Team (Late st Contact Info) Description 03/11/2024 2:00 PM EDT Office Visit Family Practice [facility] [address] [place] [address] Cherie Castelan CRNP [address] [place] [address] 04/02/2024 12:30 PM EST Office Visit Orthopaedics [facility] [address] [place] [address] Jerrod Evans MD [address] [facility] [place] [address] 04/12/2024 2:00 PM EST Imaging Cardiac Studies, [facility] [address] [place] [address] 05/17/2024 9:00 AM EST Imaging Radiology [facility] 1st Floor, [place] [address] [place] [address] 05/25/2024 12:40 PM EST Office Visit Dermatology [facility] [address] [place] [address] Enid Peralta PA-C [address] [facility] [place] [address] 09/22/2024 11:20 AM EDT Office Visit Sleep Disorders Ctr [facility] [address] [facility] [place] [phone] Selma Salinas, [address] [facility] [place] [address] Health Maintenance Due Date Last Done Comments [...] 09/03/2022, Additional history exists Diabetes Screening 07/12/2025 03/02/2024, 0 07/12/2022, 11/20/2021, Additional history exists DTap/Tdap Vaccines (2 - Td or Tdap) 05/06/2026 05/06/2016, 02/11/2003 Lipid Panel 11/20/2026 03/02/2024, 070 09/2021, 11/08/2020, Additional history exists Pap Smear 12/09/2026 12/10/2023, [...] Procedure Name Priority Date/Time Associated Diagnosis Comments OUTSIDE LAB RESULTS 03/02/2024 documented in this encounter Results * OUTSIDE LAB RESULTS (03/02/2024) 03/02/2024 Selma Salinas DO LABORATORY documented in this encounter Care Teams Special Effects Makeup Artist Relationship Specialty Start Date End Date Cherie Castelan CRNP [address] [place] [address] PCP - General Nurse Practitioner 09/03/22 documented as of this encounter
--- OUTSIDE RECORDS SUMMARY | 2024-07-16 07:52 | External Medical Summary | Summary of Care ---
Author Name Unknown Organization [facility] Address [address] [place] [address] Phone [phone] Care Team Providers Care Adult Care Manager Name Role Phone Cherie Castelan Primary Care Provider Reason for Referral * Evaluate & Treat - Unlimited Visits (Within 30 days (routine)) - Authorized Specialty Diagnoses / Procedures Referred By Arnoldo glass Referred To Contact Physical Therapy / Physical Medicine And Rehab Diagnoses Other kyphosis of cervical region Cherie Castelan CRNP [address] [place] [address] Referral ID Status Reason Start Date Expiration Date Visits Requested Visits Authorized [id number] Authorized Specialty Services Required 4 [phone] Question Answer Referral Priority Within 30 days (routine) Where should this appointment be scheduled? [facility] Reason for Visit * Reason Comments Follow Up 3 month follow up. Encounter Details Date Type Department Care Team ([facility] st Contact Info) Description 03/11/2024 2:00 PM EDT Office Visit Family Practice [facility] [address] [place] [address] Cherie Castelan CRNP [address] [place] [address] Other kyphosis of cervical region*; Hypocalcemia; RODY (obstructive sleep apnea); POSTSURGICAL HYPOTHYROID; VELASQUEZ (dyspnea on exertion) Allergies Active Allergy Reactions Criticality Noted Date Comments Sulfa Antibiotics 11/05/1999 Rash as a child documented as of this encounter (statuses as of 03/11/2024) Medications Medication Sig Dispensed Refills Start Date [...] (BMI) of 38.0 to 38.9 in adult ([facility]) Inject 0.25 mg under the skin once a week. 2 mL 5 10/30/2023 Active Additional Information Patient not taking.Reported on 12/10/2023 Melatonin 5 MG Oral Tablet Take 1 Tablet by mouth at bedtime. Active Gentle Iron 28-60-0.008-0.4 MG Oral Capsule (Fe Bisgly-Vit C-Vit B12-FA) Take by mouth. Active Hospital, Clinic, or Other Facility Administered Medication Ordered Dose Route Frequency Start Date End Date Status Albuterol Sulfate (Proventil) (2.5 MG/3ML) 0.083% inhalation solution 2.5 mgIndications:VELASQUEZ (dyspnea on exertion) 2.5 mg NEBULIZER ONCE PRN 12/10/2023 12/09/2024 Act ashley documented as of this encounter (statuses as of 03/11/2024) Active Problems Problem Noted Date Diagnosed Date Screening for lipid disorders 12/10/2023 VELASQUEZ (dyspnea on exertion) 12/10/2023 Restless leg 09/04/2023 [...] as of this encounter (statuses as of 03/11/2024) Resolved Problems Problem Noted Date Diagnosed Date Resolved Date Anxiety and depression 07/12/202209/03 Memory loss 07/12/2022 09/03/2022 Dermatitis 07/21/2013 05/07/2017 Gestational diabetes mellitus, antepartum 08/08/2003 06/25/2006 Overview: 2003, during first Normal , first 04/06/200311/2006 MALIGN NEOPL THYROID 12/18/2001 015 Cervicitis 12/21/1999 06/25/2006 documented as of this encounter (statuses as of 03/11/2024) Immunizations Name Administration Dates Next Due COVID-19 mRNA, LNP-s, No Pre serve, 2-Dose Series (Pouring Pounds) 04/24/2021,08/07/2020,07/12/2020 COVID-19, mRNA, LNP-s, No Pr eserve, [...] Master's degree (e.g., MA, MS, Alex, MEd, PHYSICAL THERAPY COORDINATOR, TAYLOR) 01/03/2023 Sex and Gender Information Value Date Recorded Sex Assigned at Female 07/09/2022 7:48 PM EST Gender Identity Female 07/09/2022 7:48 PM EST Sexual Orientation Straight 07/09/2022 7: 48 PM EST Job Start Date Occupation Industry Not on file Not on file Not on file documented as of this encounter Last Filed Vital Signs Vital Sign Reading Time Taken Comments Blood Pressure 118/76 03/11/2024 1:43 PM EDT Pulse 84 03/11/2024 1:43 PM EDT Temperature - - Respiratory Rate - - Oxygen Saturation 96% 03/11/2024 1:43 PM EDT Inhaled Oxygen Concentration - - Weight 98.7 kg (217 lb 9.6 oz) 03/11/2024 1:43 P M EDT Height - - Body Mass Index 39.8 02/19/2024 11:34 AM EDT documented in this encounter Progress Notes * Cherie Castelan CRNP - 03/11/2024 2:03 PM EDT Follow up Family Medicine Visit CC: Chief Complaint Patient presents with Follow Up 3 month follow up. History of Present Illness: Lexie Arias is a 58 year old female presenting for 3 month follow up. She saw PT for Greatertrochanteric pain syndrome. She is doing exercises. Cpap pressure 2 weeks. Feeling a little better. Ferritin was low. Started iron daily Attention deficit- still waiting on neuropsych eval. Velasquez is improved. Mood is good this week. On lexapro 20 mg. Social History Socioeconomic History Marital status: Spouse name: Maxx Number of children: 2 Years of education: Not on file Highest education level: Master's degree (e.g., MA, MS, Alex, MEd, PHYSICAL THERAPY COORDINATOR, TAYLOR) Occupational History Occupation: [employer]YOR Employer: [employer] [id number] Tobacco Use Smoking status: Never Smokeless tobacco: Never Vaping Use Vaping status: Never Used Substance and Sexual Activity Alcohol use: No Drug use: No Sexual activity: Yes Partners: Male control/protection: Condom Comment: with vasectomy. no domestic violence Other Topics Concern Not on file Social History Narrative Not on file Social Determinants of Health Financial Resource Strain: Low Risk (03/11/2024) Financial Resource Strain Do you have any trouble paying for your medications, or do you think you might in the future? (Adult - for ages 18 years and over): No Does your family have trouble paying for medicine? (Household - for ages 0-17 years): Not on file Food Insecurity: No Food Insecurity (03/11/2024) Food Insecurity Do you need food for this week? (Adult - for ages 18 years and over): No Are you able to get enough food for your family? (Household - for ages 0-17 years): Not on file Does your family need food this week? (Household - for ages 0-17 years): Not on file Do you always have enough food for your family? (Household - for ages 0-17 years): Not on file Transportation Needs: No Transportation Needs (03/11/2024) Transportation Needs Do you have trouble getting a ride to medical visits or work? (Adult - for ages 18 years and over):Not on file Does your family have a hard time getting a ride to doctors visits? (Household - for ages 0-17 years): Not on file Has lack of transportation kept you from medical appointments, meetings, work, or from getting things needed for daily living? Check all that apply. (Adult - for ages 18 years and over): No Do you (or your family) have trouble finding or paying for a ride (transportation)? (Household - for ages 0-17 years): Not on file Social Connections: Socially Integrated (03/11/2024) Social Connections How often do you feel lonely or isolated from those around you? (Adult - for ages 18 years and over): Never Housing Stability: Low Risk (03/11/2024) Housing Stability Do you currently live in a half-way or have no steady place to sleep at night? (Adult - for ages 18 years and over): No Do you think you are at risk of becoming homeless? (Adult - for ages 18 years and over): Not on file Does your family worry about paying for your home or becoming homeless? (Household - for ages 0-17 years): Not on file Are you homeless or worried that you might be in the future? (Adult - for ages 18 years and over): No Are you (or your family) homeless or worried that you might be in the future? 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 Melatonin 5 MG Oral Tablet Take 1 [...] Once PRN 2.5 mg at 01/14/24 0756 Review of patient's allergies indicates: Allergen Reactions Sulfa Antibiotics Rash as a child Most Recent Immunizations Administered Date(s) Administered COVID-19 mRNA, LNP-s, No Preserve, 2-Dose Series (Pouring Pounds) 04/24/2021 COVID-19, mRNA, LNP-s, No Preserve, Ages 6 Mos-5 Yrs (Moderna) 02/02/2024 COVID-19, mRNA, LNP-s, PF, Booster, 100mcg/0.5mg (Moderna) 10/12/2021 Covid-19, Mrna, Lnp-s, Pf, Bivalent, 30 Mcg, IM, 12 yrs and above (Pouring Pounds) 02/06/2022 Seasonal Influenza Vac, Quad, Cell Cult, PF, 6 Mos and Up, IM, (Flucelvax Quad) 02/06/2022 Seasonal Influenza Vac., MDV, IM, 0.5 mL (Fluzone) 02/20/2015 Seasonal Influenza, PF, 6 M & above, IM , (FluLaval or Fluzone) 03/14/2019 Seasonal Influenza, Quadrivalent, No Preserve, IM 03/05/2017 Seasonal Influenza, Quadrivalent, No Preserve, Peds 02/02/2024 TD - Tetanus/Diptheria (ADULT) 02/11/2003 TDAP (age 10 and older)(Boostrix) 05/06/2016 Zoster Vaccine Recombinant (Shingrix) 05/15/2022 Review of Systems: Review of Systems Constitutional: Positive for fatigue. IMPROVED Respiratory: Negative for shortness of breath. Cardiovascular: Negative for chest pain. Psychiatric/Behavioral: Negative for dysphoric mood. The patient is not nervous/anxious. Mood stable Physical Exam: BP 118/76 (BP Site: Left Arm, BP Position: Sitting, BP Cuff Size: Large) | Pulse 84 | Wt 98.7 kg (217 lb 9.6 oz) | LMP 09/29/2018 | SpO2 96% | BMI 39.80 kg/m | BSA 2.08 m Physical Exam HENT: Head: Normocephalic. Cardiovascular: Rate and Rhythm: Normal rate and regular rhythm. Pulmonary: Effort: Pulmonary effort is normal. Breath sounds: Normal breath sounds. Neurological: General: No focal deficit present. Mental Status: She is alert and oriented to person, place, and time. Psychiatric: Mood and Affect: Mood normal. Behavior: Behavior normal. Thought Content: Thought content normal. Judgment: Judgment normal. Assessment and Plan: 1. Other kyphosis of cervical region She desires PT for neck kyphosis - PHYSICAL THERAPY REFERRAL OP 2. Hypocalcemia IMPROVED and stable 3. RODY (obstructive sleep apnea) Using cpap 4. POSTSURGICAL HYPOTHYROID STABLE ON LEVOTHYROXINE 5. VELASQUEZ (dyspnea on exertion) Improved Reviewed PFT and reassuring Feels improved She did not schedule cardiac stress testing I have advised the patient to call our office incase of any worsening or new symptoms. I spent a total of 20-29 minutes (exact time 25 mins) on the date of service in preparation, delivery, and documentation of the care provided to Lexie Arias excluding any time spent in the performance of separately billed services. Shahana, MSN, DIGITAL PROJECT COORDINATOR [facility] documented in this encounter Plan of Treatment Upcoming Encounters Date Type Department Care Team (Late st Contact Info) Description 04/02/2024 12:30 PM EST Office Visit Orthopaedics [facility] [address] [facility] [place] [address] Jerrod Evans MD [address] [facility] [place] [address] 04/12/2024 2:00 PM EST Imaging Cardiac Studies, [facility] [address] [facility] [place] [address] 05/17/2024 9:00 AM EST Imaging Radiology [facility] 1st Floor, [place] [address] [facility] [place] [address] 05/25/2024 12:40 PM EST Office Visit Dermatology [facility] [address] [place] [address] Enid Peralta PA-C [address] [facility] [place] [address] 09/09/2024 2:00 PM EDT Office Visit Family Practice [facility] [address] [facility] [place] [address] Cherie Castelan CRNP [address] [facility] [place] [address] 09/22/2024 11:20 AM EDT Office Visit Sleep Disorders [facility]tr [facility] [address] [facility] [place] [id number] Selma Salinas DO [address] [facility] [place] [address] Scheduled Referrals Name Type Priority Associated Diagnoses Orde r Schedule PHYSICAL THERAPY REFERRAL OP Referral Within 30 days (routine) Other kyphosis of cervical region Ordered: 03/11/2024 Health Maintenance Due Date Last Done Comments [...] as of this encounter Visit Diagnoses Diagnosis Other kyphosis of cervical region- Primary Hypocalcemia RODY (obstructive sleep apnea) Obstructive sleep apnea (adult) (pediatric) POSTSURGICAL HYPOTHYROID Postsurgical hypothyroidism VELASQUEZ (dyspnea on exertion) Other dyspnea and respiratory abnormality documented in this encounter Care Teams Adult Care Manager Relationship Specialty Start Date End Date Cherie Castelan CRNP [address] [place] [address] PCP - General Nurse Practitioner 09/03/22 documented as of this encounter
--- OUTSIDE RECORDS SUMMARY | 2024-07-16 07:52 | External Medical Summary | Summary of Care ---
Author Name Unknown Organization [facility] Address [address] [place] [address] Phone [phone] Care Team Providers Care Aquatics Lifeguard Name Role Phone Cherie Castelan Primary Care Provider Encounter Details Date Type Department Care Team (Late st Contact Info) Description 03/03/2024 Orders Only Family Practice [facility] [address] [place] [address] [facility] [address] [facility] [address] Allergies Active Allergy Reactions Criticality Noted Date [...] (BMI) of 38.0 to 38.9 in adult ([facility]) Inject 0.25 mg under the [...] mRNA, LNP-s, No Pre serve, 2-Dose Series ([email or web address]) 04/24/2021,08/07/2020,07/12/2020 COVID-19, mRNA, LNP-s, No Pr eserve, [...] Master's degree (e.g., MA, MS, Alex, MEd, FREELANCE INTERPRETER/TRANSLATOR, TAYLOR) 01/03/2023 Sex and Gender Information Value [...] 2:00 PM EDT Office Visit Family Practice [facility] [address] [place] [address] Cherie Castelan CRNP [address] [place] [address] 04/02/2024 12:30 PM EST Office Visit Orthopaedics [facility] [address] [facility] [place] [address] Jerrod Evans MD [address] [place] [address] 04/12/2024 2:00 PM EST Imaging Cardiac Studies, [facility] [place] [address] 05/17/2024 9:00 AM EST Imaging Radiology [facility] 1st Floor, [place] [address] [facility] [place] [address] 05/25/2024 12:40 PM EST Office Visit Dermatology [facility] [address] [place] [address] Enid Peralta PA-C [address] [place] [address] 09/22/2024 11:20 AM EDT Office Visit Sleep Disorders Ctr [facility] [address] [facility] [place] [phone] Selma Salinas, [address] [place] [address] Health Maintenance Due Date Last Done Comments [...] 05/06/2026 05/06/2016, 02/11/2003 Lipid Panel 11/20/2026 03/02/2024, 07/0 09/2021, 11/08/2020, Additional history exists Pap Smear [...] Procedure Name Priority Date/Time Associated Diagnosis Comments LIPID PANEL WITH DIRECT LDL IF TG IS HIGH Routine 03/02/2024 BASIC METABOLIC PANEL Routine 03/02/2024 documented in this encounter Results * LIPID PANEL WITH DIRECT LDL IF TG IS HIGH (03/02/2024) TRIGLYCERIDES-O UTSIDE LAB 60 <150 MG/DL OUTSIDE LAB (SEE SCANNED REPORT) CHOLESTEROL-OUT SIDE LAB 139 <200 MG/DL OUTSIDE LAB (SEE SCANNED REPORT) HDL-OUTSIDE LAB 51 >=50 MG/DL OUT SIDE LAB (SEE SCANNED REPORT) CHOL/HDL RATIO-OUTSIDE LAB 2.7 <5.0 OUTSIDE LAB (SEE SCANNED REPORT) LDL (CALCULATED)-OU TSIDE LAB 74 <100 MG/DL OUTSIDE LAB (SEE SCANNED REPORT) Blood Venous blood specimen / Unknown 03/02/2024 Cherie VIZCAINO LAB BLOOD ORDRebeca ALEXA Performing Organization Address City/[facility]/ZIP Co de Phone Number OUTSIDE LAB (SEE SCANNED REPORT) * BASIC METABOLIC PANEL (03/02/2024) CREATININE 0.80 0.50 - 1.03 MG/DL OUTSIDE LAB (SEE SCANNED REPORT) EGFR 86 >=60 ML/MIN OUTSIDE LAB (SEE SCANNED REPORT) POTASSIUM 4.5 3.5 - 5.3 MMOL/L OUTSIDE LAB (SEE SCANNED REPORT) GLUCOSE 99 65 - 99 MG/DL OUTSIDE LAB (SEE SCANNED REPORT) Blood Venous blood specimen / Unknown 03/02/2024 Cherie VIZCAINO LAB BLOOD JENRebeca [facility] OUTSIDE LAB (SEE SCANNED REPORT) documented in this encounter Care Teams Aquatics Lifeguard Relationship Specialty Start Date End Date Cherie Castelan CRNP [address] [place] [address] PCP - General Nurse Practitioner 09/03/22 documented as of this encounter
--- NOTE | 2024-07-16 08:04 | Emergency Department Note ---
History of Present Illness General Chief complaint: Hip Pain Stated complaint: HIP AND LEG PAIN 10/10 Time Seen by Provider: 07/16/24 07:56 History of Present Illness Maximum Pain Intensity: 8 This is a 58-year-old female who presents to the emergency department via private vehicle accompanied by with complaints of "right low back, right hip and right leg pain". The patient notes that earlier today she began with significant discomfort to the right low back, right hip and right leg region. She rates the pain as a 10/10. Worse with movement but not much better with rest. She took 3 ibuprofen and 2 Tylenol at 7 AM with no relief of her symptoms. No trauma, injury, fevers or chills. No nausea or vomiting. Does have remote history of sciatica about 20 years ago during but nothing like this in the recent past. No anticoagulant use. No chest pain or shortness of breath. No abdominal pain. No dysuria. No lower extremity weakness. No bowel or bladder incontinence. No numbness or tingling in genital region. Home Medications Medication Instructions Recorded Confirmed Type levothyroxine 112 mcg tablet 112 mcg PO DAILY ##0 05/22/07 07/16/24 History escitalopram oxalate 20 mg tablet 20 mg PO HS 07/16/24 07/16/24 History ibuprofen 1 tab PO DIRECTED PRN Pain 07/16/24 07/16/24 History Allergies Allergy/AdvReac Type Severity Reaction Status Date / Time Sulfa (Sulfonamide Allergy Unknown REACTION Verified 06/23/09 03:27 Antibiotics) WHEN A CHILD Past Med/Surg History Problem List (Updated 07/16/24 @ 09:11 by Mohit Majano PA-C) Protrusion of lumbar intervertebral disc (Acute) Abnormal CT scan, lumbar spine (Acute) Acute right lumbar radiculopathy (Acute) No significant past surgical history Hypothyroidism (acquired) Medical History Hypothyroidism (acquired) Surgical History No significant past surgical history Social History (Updated 05/06/21 @ 18:32 by Abel Coppola) Smoking Status: Never smoker Preferred Language: Spanish marital status: Current Living Situation: Spouse current occupational status: employed Feels Safe at Home: Yes Review of Systems A total of 10 systems reviewed and were otherwise negative Physical Exam Vital Signs Vital Signs - 24 hr 07/16/24 07:47 07/16/24 09:37 07/16/24 09:37 Temperature 36.3 C L Temperature Source Temporal Artery Scan Pulse Rate 70 Pulse Rate [Apical] 79 Respiratory Rate 26 H 18 Blood Pressure 164/80 H Blood Pressure [Right Arm] 151/80 H Blood Pressure Mean 108 Blood Pressure Mean [Right Arm] 103 Pulse Oximetry 100 95 99 Oxygen Delivery Method Room Air Room Air Room Air Sepsis New/Unexplained Change in Mental Status No Sepsis Action Taken by Nursing No Action Required VITAL SIGNS - Vital signs and nursing notes were reviewed. Stable and afebrile. Hypertensive. Tachypneic at 26. GENERAL -58-year-old female appearing her stated age who appears to be in pain, is lying in the position on the left side in the examination bed. Communicates well with provider and answers questions appropriately. SKIN - Without rashes. No meningeal or petechial rash. The skin overlying the low back and right hip is unremarkable. HEAD - NC/AT. EYES -Sclera anicteric. NECK - Neck with FROM. No nuchal rigidity. LUNGS - CTA CARDIAC - RRR ABDOMEN - Abdominal contour normal without pulsations or visible masses. BS normoactive all four quadrants. No tenderness, palpable masses, hepatosplenomegaly, or ascites noted. EXTREMITIES - No clubbing or peripheral cyanosis. +5/5 strength noted in UE/LE bilaterally. No reproducible tenderness overlying the right greater trochanter. L-spine nontender. Palpable muscle spasm present in the right lower extremity. NEUROLOGIC - Cranial nerves II through XII grossly intact. Patellar reflexes within normal limits. PSYCH -alert, oriented and pleasant on exam. Course Administered Medications Discontinued Medications Dexamethasone Sodium Phosphate (DexamethasonePf 10 Mg/Ml Vial) 10 mg IV NOW ONE Stop: 07/16/24 09:06 Last Admin: 07/16/24 09:15 Dose: 10 mg Documented By: DS Lidocaine (Lidocaine 5% 1 Patch) 1 patch TD NOW STA Stop: 07/16/24 08:05 Last Admin: 07/16/24 08:27 Dose: 1 patch Documented By: MNE Morphine Sulfate (Morphine Sulfate 4 Mg/Ml 1 Ml Carp\\Vial) 4 mg IV NOW STA Stop: 07/16/24 08:05 Last Admin: 07/16/24 08:26 Dose: 4 mg Documented By: AQUILES Morphine Sulfate (Morphine Sulfate 2 Mg/Ml Carp) 2 mg IV NOW STA Stop: 07/16/24 09:06 Last Admin: 07/16/24 09:15 Dose: 2 mg Documented By: MARIELLA Ondansetron HCl (Ondansetron Inj 2 Mg/Ml 2 Ml Vial) 4 mg IV NOW STA Stop: 07/16/24 08:05 Last Admin: 07/16/24 08:27 Dose: 4 mg Documented By: AQUILES Medical Decision Making Laboratory Data 07/16/24 08:20 07/16/24 08:20 Lab Results 07/16/24 07/16/24 Range/Units 08:20 09:30 WBC 6.03 (4.8-10.8) K/ul RBC 4.76 (4.20-5.40) M/uL Hgb 13.3 (12.0-16.0) g/dl Hct 40.2 (37.0-47.0) % MCV 84.5 (80.0-100.0) fL MCH 27.9 (25.0-34.0) pg MCHC 33.1 (32.0-36.0) g/dL RDW Std Deviation 40.6 (36.4-46.3) fL RDW Coeff of Yelena 13.1 (11.5-14.5) % Plt Count 280 (130-400) K/uL MPV 9.6 (9.4-12.4) fL Immature Gran % (Auto) 0.7 % Neut % (Auto) 57.3 % Lymph % (Auto) 26.5 % [place] % (Auto) 10.0 % Eos % (Auto) 4.8 % Baso % (Auto) 0.7 % Neut # (Auto) 3.46 (1.40-6.50) K/uL Lymph # (Auto) 1.60 (1.20-3.40) K/uL [place] # (Auto) 0.60 H (0.11-0.59) K/uL Eos # (Auto) 0.29 (0.00-0.50) K/uL Baso # (Auto) 0.04 (0.00-0.20) K/uL Immature Gran # (Auto) 0.04 (0.01-0.20) K/uL Sodium 137 (136-145) mmol/L Potassium 4.0 (3.5-5.1) mmol/L Chloride 105 (98-107) mmol/L Carbon Dioxide 24 (21-32) mmol/L Anion Gap 8 (3-11) BUN 26 H (6-23) mg/dl Creatinine 0.85 (0.6-1.2) mg/dl Est Cr Clr Drug Dosing Not Reportable eGFR 80.36 BUN/Creatinine Ratio 30.6 H (10-20) Glucose 121 H (70-99(Fasting)) mg/dl Calcium 8.5 L (8.6-10.3) mg/dl Total Bilirubin 0.4 (0.2-1.0) mg/dl AST 16 (13-39) U/L ALT 17 (7-52) U/L Alkaline Phosphatase 73 (34-104) U/L Total Protein 6.7 (6.0-8.3) gm/dl Albumin 4.0 (3.4-5.0) gm/dl Globulin 2.7 (2.5-4.0) gm/dl Albumin/Globulin Ratio 1.5 (0.9-2) Urine Color Yellow Urine Appearance Clear (Clear) Urine pH 7.0 (4.5-7.5) Ur Specific Kamas 1.024 (1.000-1.030) Urine Protein Negative (Negative) Urine Glucose (UA) Negative (Negative) Urine Ketones Trace H (Negative) Urine Blood Negative (Negative) Urine Nitrite Negative (Negative) Urine Bilirubin Negative (Negative) Urine Urobilinogen Negative (Negative) Ur Leukocyte Esterase Negative (Negative) Imaging Data Radiologist's Impression: Lumbar Spine CT 07/16/24 08:04 CT lumbar spine wo con HISTORY: 58 years-old Female Low back pain into R hip/leg pain acute low back pain COMPARISON: CT pelvis of same day, CT abdomen and pelvis 08/20/2005 TECHNIQUE: Multiple axial CT images of the lumbar spine were obtained without IV contrast. A dose lowering technique was used consistent with the principals of [employer]. FINDINGS: Left nephrolithiasis measuring up to 3 mm. No acute intra-abdominal or paraspinal abnormality. Mild degeneration of the SI joints. Mild spondylitic spurring and facet arthrosis. No acute fracture, subluxation or endplate erosion. There is suboptimal evaluation of the central canal and neural foramen by CT technique. L1-L2: No significant central canal or foraminal narrowing. L2-L3: No significant central canal or foraminal narrowing. L3-L4: Small posterior annular disc bulge. There is a right far lateral disc protrusion measuring 1.2 x 0.8 x 1.2 cm (image 206 series 3 image 23 of series 300). Mild adjacent deep tissue edema suggestive of acute or subacute etiology. This likely displaces the adjacent exiting L3 nerve root. Mild right foraminal narrowing. The central canal and left neuroforamen are patent. L4-L5: Tiny posterior annular disc bulge. No significant central canal or foraminal narrowing. L5-S1: Small posterior annular disc bulge. No significant central canal or foraminal narrowing. IMPRESSION: 1. No acute fracture or subluxation. 2. At L3-L4 there is a far right lateral disc protrusion measuring 1.2 cm which likely displaces the adjacent L3 nerve root. 3. No high-grade central canal or foraminal narrowing. 4. Left nephrolithiasis. ACT 112: Negative or not required by law. The above report was generated using voice recognition software. It may contain grammatical, syntax or spelling errors. Electronically signed by: Braeden Mcintosh M.D. 07/16/2024 8:[address] 07/16/24 08:04 CT pelvis wo con CLINICAL HISTORY: Low back pain into R hip/leg pain COMPARISON STUDY: None FINDINGS: There are mild degenerative changes at both hips without significant joint space narrowing, right greater than left. No fracture or dislocation. There is a tiny bone island at the right acetabulum. No significant osseous lesion or osteomyelitis seen. SI joints are unremarkable. No soft tissue abscess or hematoma seen. Uterus and adnexal regions are grossly unremarkable. Urinary bladder is nondistended. Visualized bowel shows no inflammation or obstruction. No pelvic free fluid. IMPRESSION: Mild degenerative changes at the right hip. No acute findings. ACT 112: Negative or not required by law. Electronically signed by: Vish Payan M.D. 07/16/2024 9:00 AM MDM Narrative Patient was seen and evaluated as above in room D04b. Review was performed of triage nursing notes and vital signs. Patient presents for evaluation of right low back/right hip pain. No trauma. No injury. Neurovascular intact on exam but appears to be in significant pain. Options of care were discussed with the patient. IV access with established. Labs were drawn. No leukocytosis or concerning anemia. Mild elevation of BUN at 26. Mild hyperglycemia 121. Urinalysis does not suggest infection. Patient was medicated with IV morphine for pain, IV Zofran for nausea. Lidocaine patch also ordered. CT scan was performed of the L-spine and pelvis. The patient by CT does have an L3-L4 far right lateral disc protrusion measuring 1.2 cm which likely displaces the adjacent L3 nerve root. This does clinically correlate. Pelvis CT without fracture or acute finding. Patient medicated here with additional IV morphine, IV dexamethasone ordered as well noting patient's findings and symptoms today. Noting the severity of the patient's pain I do believe that further evaluation and management in the inpatient setting is warranted. Case discussed with the hospitalist service. She continues to be neurovascularly intact without evidence of cauda equina syndrome clinically. Please refer to further documentation regarding her stay. GCS: 15 In the evaluation and treatment of this patient the following differential diagnoses were entertained: Lumbar radiculopathy, fracture, dislocation, subluxation, contusion, sprain, strain, cauda equina syndrome, among others. Impression & Plan Acute right lumbar radiculopathy, Abnormal CT scan, lumbar spine, Protrusion of lumbar intervertebral disc Discharge Plan Visit Data Chief Complaint: Hip Pain Stated Complaint: HIP AND LEG PAIN 02/25 ED Provider: Prateek Freeman ED Midlevel Provider: Mohit Majano Discharge Problem: Acute right lumbar radiculopathy, Abnormal CT scan, lumbar spine, Protrusion of lumbar intervertebral disc Patient Disposition: Admitted As Inpatient Condition: Good Forms Stand Alone Forms: My [facility] Prescriptions Prescriptions: No Action levothyroxine 112 mcg Tablet 112 mcg PO DAILY Qty: 0 Rx Instructions: filled 06/23 90 day supply escitalopram oxalate 20 mg tablet 20 mg PO HS Rx Instructions: filled 07/07/24 90 day supply ibuprofen 1 tab PO DIRECTED PRN (Reason: Pain) Rx Instructions: OTC unknown dose Referrals Referrals: Rich Baird DO [Outside Practitioners] -
[2024-07-16] MEDS: MoRPHine SULFATE 4 MG/ML 1 ML CARP\\VIAL IV STA (08:26)
[2024-07-16] MEDS: ONDANSETRON INJ 2 MG/ML 2 ML VIAL IV STA (08:27)
[2024-07-16] MEDS: LIDOCAINE 5% 1 PATCH TD STA (08:27)
--- NOTE | 2024-07-16 08:50 | CT Scan Report ---
CT lumbar spine wo con HISTORY: 58 years-old Female Low back pain into R hip/leg pain acute low back pain COMPARISON: CT pelvis of same day, CT abdomen and pelvis 08/20/2005 TECHNIQUE: Multiple axial CT images of the lumbar spine were obtained without IV contrast. A dose low ering technique was used consistent with the principals of [place]. FINDINGS: Left nephrolithiasis measuring up to 3 mm. No acute intra-abdominal or paraspinal abnormality. Mild d egeneration of the SI joints. Mild spondylitic spurring and facet arthrosis. No acute fracture, sublu xation or endplate erosion. There is suboptimal evaluation of the central canal and neural foramen by CT technique. L1-L2: No significant central canal or foraminal narrowing. L2-L3: No significant central canal or foraminal narrowing. L3-L4: Small posterior annular disc bulge. There is a right far lateral disc protrusion measuring 1.2 x 0.8 x 1.2 cm (image 206 series 3 image 23 of series 300). Mild adjacent deep tissue edema suggesti ve of acute or subacute etiology. This likely displaces the adjacent exiting L3 nerve root. Mild righ t foraminal narrowing. The central canal and left neuroforamen are patent. L4-L5: Tiny posterior annular disc bulge. No significant central canal or foraminal narrowing. L5-S1: Small posterior annular disc bulge. No significant central canal or foraminal narrowing. IMPRESSION: 1. No acute fracture or subluxation. 2. At L3-L4 there is a far right lateral disc protrusion measuring 1.2 cm which likely displaces the adjacent L3 nerve root. 3. No high-grade central canal or foraminal narrowing. 4. Left nephrolithiasis. ACT 112: Negative or not required by law. The above report was generated using voice recognition software. It may contain grammatical, syntax o r spelling errors. Electronically signed by: Braeden Mcintosh M.D. 07/16/2024 8:48 AM
--- NOTE | 2024-07-16 09:02 | CT Scan Report ---
CT pelvis wo con CLINICAL HISTORY: Low back pain into R hip/leg pain COMPARISON STUDY: None FINDINGS: There are mild degenerative changes at both hips without significant joint space narrowing, right greater than left. No fracture or dislocation. There is a tiny bone island at the right acetab ulum. No significant osseous lesion or osteomyelitis seen. SI joints are unremarkable. No soft tissue abscess or hematoma seen. Uterus and adnexal regions are grossly unremarkable. Urinary bladder is no ndistended. Visualized bowel shows no inflammation or obstruction. No pelvic free fluid. IMPRESSION: Mild degenerative changes at the right hip. No acute findings. ACT 112: Negative or not required by law. Electronically signed by: Vish Payan M.D. 07/16/2024 9:00 AM
[2024-07-16 09:12] LABS: Basophils # (auto) 0.04 K/uL (0.00-0.20); Basophils % (auto) 0.7 %; Eosinophils # (auto) 0.29 K/uL (0.00-0.50); Eosinophils % (auto) 4.8 %; Hematocrit (blood only) 40.2 % (37.0-47.0); Hemoglobin 13.3 g/dl (12.0-16.0); Immature Granulocytes # (auto) 0.04 K/uL (0.01-0.20); Immature Granulocytes % (auto) 0.7 %; Lymphocytes % (auto) 26.5 %; Mean Corpuscular Hemoglobin 27.9 pg (25.0-34.0); Mean Corpuscular Hgb Conc 33.1 g/dL (32.0-36.0); Mean Corpuscular Volume 84.5 fL (80.0-100.0); Mean Platelet Volume 9.6 fL (9.4-12.4); Neutrophils # (auto) 3.46 K/uL (1.40-6.50); Neutrophils % (auto) 57.3 %; Platelet Count 280 K/uL (130-400); RDW Coefficient of Variation 13.1 % (11.5-14.5); RDW Standard Deviation 40.6 fL (36.4-46.3); Red Blood Count 4.76 M/uL (4.20-5.40); White Blood Count 6.03 K/ul (4.8-10.8)
[2024-07-16] MEDS: MoRPHine SULFATE 2 MG/ML CARP IV STA (09:15)
[2024-07-16] MEDS: dexAMETHasone**PF** 10 MG/ML VIAL IV ONE (09:15)
[2024-07-16 09:31] LABS: Alanine Aminotransferase 17 U/L (7-52); Albumin Globulin Ratio 1.5 (0.9-2); Alkaline Phosphatase 73 U/L (34-104); Anion Gap 8 (3-11); Aspartate Aminotransferase 16 U/L (13-39); BUN Creatinine Ratio 30.6 (10-20); Bilirubin,Total 0.4 mg/dl (0.2-1.0); Blood Urea Nitrogen 26 mg/dl (6-23); Calcium 8.5 mg/dl (8.6-10.3); Carbon Dioxide 24 mmol/L (21-32); Chloride 105 mmol/L (98-107); Globulin 2.7 gm/dl (2.5-4.0); Glucose 121 mg/dl (70-99(Fasting)); Sodium 137 mmol/L (136-145); Total Protein 6.7 gm/dl (6.0-8.3)
[2024-07-16 10:02] LABS: Appearance Urine Clear (Clear); Bilirubin Urine Negative (Negative); Blood Urine Negative (Negative); Color Urine Yellow; Glucose Urine UA Negative (Negative); Ketones Urine Trace (Negative); Leukocyte Esterase Urine Negative (Negative); Nitrite Urine Negative (Negative); Protein Urine Negative (Negative); Specific Gravity Urine 1.024 (1.000-1.030); Urobilinogen Urine Negative (Negative)
--- NOTE | 2024-07-16 10:19 | History & Physical Report ---
Date of Service July 16, 2024 Assessment & Plan (1) Protrusion of lumbar intervertebral disc: (2) Abnormal CT scan, lumbar spine: (3) No significant past surgical history: (4) Hypothyroidism (acquired): Plan The patient is a 58-year-old female with a past medical history of anxiety and hypothyroidism who presented to the ED on 07/16/2024 with complaints of severe lower back pain L3-L4 disc protrusion Severe lower back pain PT/OT, start Robaxin scheduled Consult orthospine, no spinal canal narrowing noted IV Dilaudid for breakthrough pain Hx anxiety: Continue Lexapro Hx hypothyroidism: Continue Synthroid A total of 60 minutes was spent on chart review/reviewing diagnostic data/discussion with consultants/facilitating plan of care Full code DVT prophylaxis: Lovenox History of Present Illness Chief Complaint: Lower back pain Primary Care Provider: ACRRILLO Hills The patient is a 58-year-old female with a past medical history of anxiety and hypothyroidism who presents to the ED on 07/16/2024 with complaints of severe lower back pain. Patient reports about 2 days ago while she was resting in bed, she noticed some hip flexing pain. Patient reports she took Motrin and put a heating pad on her hip and went to sleep which helped. The next day, the pain returned and was severe. She was unable to sleep and Motrin did not help at all. 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 Does report sitting for long periods of time. Denies any chronic back pain. Denies any recent injury. Denies any saddle anesthesia or urinary retention or constipation. Denies any recent respiratory illness. She reports the pain is so bad she is unable to bear weight. Arrived to the ER today in a wheelchair. On arrival to the ED, labs remarkable for BUN 26, glucose 121, calcium 8.5 Urinalysis fairly unremarkable. Pelvis CT shows mild degenerative changes of the right hip. No acute findings Lumbar spine CT shows: 1. No acute fracture or subluxation. 2. At L3-L4 there is a far right lateral disc protrusion measuring 1.2 cm which likely displaces the adjacent L3 nerve root. 3. No high-grade central canal or foraminal narrowing. 4. Left nephrolithiasis. The patient will be admitted for pain control and evaluation by ortho-spine. Allergies Allergy/AdvReac Type Severity Reaction Status Date / Time Sulfa (Sulfonamide Allergy Unknown REACTION Verified 06/23/09 03:27 Antibiotics) WHEN A CHILD Home Medications Medication Instructions Recorded Confirmed Type levothyroxine 112 mcg tablet 112 mcg PO DAILY ##0 05/22/07 07/16/24 History escitalopram oxalate 20 mg tablet 20 mg PO HS 07/16/24 07/16/24 History ibuprofen 1 tab PO DIRECTED PRN Pain 07/16/24 07/16/24 History Past Med/Surg History Problem List (Updated 07/16/24 @ 09:11 by Mohit Majano PA-C) Protrusion of lumbar intervertebral disc (Acute) Abnormal CT scan, lumbar spine (Acute) Acute right lumbar radiculopathy (Acute) No significant past surgical history Hypothyroidism (acquired) Medical History Hypothyroidism (acquired) Surgical History No significant past surgical history Social History (Updated 05/06/21 @ 18:32 by Abel Coppola) Smoking Status: Never smoker Preferred Language: [place] Islander marital status: Current Living Situation: Spouse current occupational status: employed Feels Safe at Home: Yes Review of Systems Review of Systems: All systems reviewed & are unremarkable except as noted in HPI & below Physical Exam Constitutional: WD/WN, vitals as above Eyes: PERRL, conjunctivae normal, anicteric sclerae ENMT: external ear and nose normal, oropharynx normal Neck: trachea midline, no thyromegaly Respiratory: normal respiratory effort, lungs clear to auscultation Cardiovascular: RRR, no murmur, no edema Gastrointestinal (Abdomen): normal bowel sounds, soft, nontender, no hep atosplenomegaly Musculoskeletal: no cyanosis or clubbing, extremities motor strength 5/5 Skin: no rashes, warm and dry Neurologic: PERRL, EOMI, accommodation nl, no face palsy, no dysarthria Psychiatric: A+Ox3, euthymic affect Genitourinary: no vaginal lesions, no adnexal mass Lymphatic: no cervical or axillary lymphadenopathy Results & Data Results & Data Vital Signs (Past 12 Hours) Vital Signs Temp Pulse Pulse Resp BP BP Pulse Ox 07/16/24 09:37 79 18 151/80 H 99 07/16/24 09:37 95 07/16/24 07:47 36.3 C L 70 26 H 164/80 H 100 O2 Del Method 07/16/24 09:37 Room Air 07/16/24 09:37 Room Air 07/16/24 07:47 Room Air Diagnostic Findings Laboratory Results WBC 6.03 K/ul (4.8-10.8) 07/16/24 08:20 RBC 4.76 M/uL (4.20-5.40) 07/16/24 08:20 Hgb 13.3 g/dl (12.0-16.0) 07/16/24 08:20 Hct 40.2 % (37.0-47.0) 07/16/24 08:20 MCV 84.5 fL (80.0-100.0) 07/16/24 08:20 MCH 27.9 pg (25.0-34.0) 07/16/24 08:20 MCHC 33.1 g/dL (32.0-36.0) 07/16/24 08:20 RDW Std Deviation 40.6 fL (36.4-46.3) 07/16/24 08:20 RDW Coeff of Yelena 13.1 % (11.5-14.5) 07/16/24 08:20 Plt Count 280 K/uL (130-400) 07/16/24 08:20 MPV 9.6 fL (9.4-12.4) 07/16/24 08:20 Immature Gran % (Auto) 0.7 % 07/16/24 08:20 Neut % (Auto) 57.3 % 07/16/24 08:20 Lymph % (Auto) 26.5 % 07/16/24 08:20 [place] % (Auto) 10.0 % 07/16/24 08:20 Eos % (Auto) 4.8 % 07/16/24 08:20 Baso % (Auto) 0.7 % 07/16/24 08:20 Neut # (Auto) 3.46 K/uL (1.40-6.50) 07/16/24 08:20 Lymph # (Auto) 1.60 K/uL (1.20-3.40) 07/16/24 08:20 [place] # (Auto) 0.60 K/uL (0.11-0.59) H 07/16/24 08:20 Eos # (Auto) 0.29 K/uL (0.00-0.50) 07/16/24 08:20 Baso # (Auto) 0.04 K/uL (0.00-0.20) 07/16/24 08:20 Immature Gran # (Auto) 0.04 K/uL (0.01-0.20) 07/16/24 08:20 Sodium 137 mmol/L (136-145) 07/16/24 08:20 Potassium 4.0 mmol/L (3.5-5.1) 07/16/24 08:20 Chloride 105 mmol/L (98-107) 07/16/24 08:20 Carbon Dioxide 24 mmol/L (21-32) 07/16/24 08:20 Anion Gap 8 (3-11) 07/16/24 08:20 BUN 26 mg/dl (6-23) H 07/16/24 08:20 Creatinine 0.85 mg/dl (0.6-1.2) 07/16/24 08:20 Est Cr Clr Drug Dosing Not Reportable 07/16/24 08:20 eGFR 80.36 07/16/24 08:20 BUN/Creatinine Ratio 30.6 (10-20) H 07/16/24 08:20 Glucose 121 mg/dl (70-99(Fasting)) H 07/16/24 08:20 Calcium 8.5 mg/dl (8.6-10.3) L 07/16/24 08:20 Total Bilirubin 0.4 mg/dl (0.2-1.0) 07/16/24 08:20 AST 16 U/L (13-39) 07/16/24 08:20 ALT 17 U/L (7-52) 07/16/24 08:20 Alkaline Phosphatase 73 U/L (34-104) 07/16/24 08:20 Total Protein 6.7 gm/dl (6.0-8.3) 07/16/24 08:20 Albumin 4.0 gm/dl (3.4-5.0) 07/16/24 08:20 Globulin 2.7 gm/dl (2.5-4.0) 07/16/24 08:20 Albumin/Globulin Ratio 1.5 (0.9-2) 07/16/24 08:20 Urine Color Yellow 07/16/24 09:30 Urine Appearance Clear (Clear) 07/16/24 09:30 Urine pH 7.0 (4.5-7.5) 07/16/24 09:30 Ur Specific [place] 1.024 (1.000-1.030) 07/16/24 09:30 Urine Protein Negative (Negative) 07/16/24 09:30 Urine Glucose (UA) Negative (Negative) 07/16/24 09:30 Urine Ketones Trace (Negative) H 07/16/24 09:30 Urine Blood Negative (Negative) 07/16/24 09:30 Urine Nitrite Negative (Negative) 07/16/24 09:30 Urine Bilirubin Negative (Negative) 07/16/24 09:30 Urine Urobilinogen Negative (Negative) 07/16/24 09:30 Ur Leukocyte Esterase Negative (Negative) 07/16/24 09:[address] 07/16/24 08:04 CT lumbar spine wo con HISTORY: 58 years-old Female Low back pain into R hip/leg pain acute low back pain COMPARISON: CT pelvis of same day, CT abdomen and pelvis 08/20/2005 TECHNIQUE: Multiple axial CT images of the lumbar spine were obtained without IV contrast. A dose lowering technique was used consistent with the principals of [place]. FINDINGS: Left nephrolithiasis measuring up to 3 mm. No acute intra-abdominal or paraspina l abnormality. Mild degeneration of the SI joints. Mild spondylitic spurring and facet arthrosis. No acute fracture, subluxation or endplate erosion. There is suboptimal evaluation of the central canal and neural foramen by CT technique. L1-L2: No significant central canal or foraminal narrowing. L2-L3: No significant central canal or foraminal narrowing. L3-L4: Small posterior annular disc bulge. There is a right far lateral disc protrusion measuring 1.2 x 0.8 x 1.2 cm (image 206 series 3 image 23 of series 300). Mild adjacent deep tissue edema suggestive of acute or subacute etiology. This likely displaces the adjacent exiting L3 nerve root. Mild right foraminal narrowing. The central canal and left neuroforamen are patent. L4-L5: Tiny posterior annular disc bulge. No significant central canal or foraminal narrowing. L5-S1: Small posterior annular disc bulge. No significant central canal or foraminal narrowing. IMPRESSION: 1. No acute fracture or subluxation. 2. At L3-L4 there is a far right lateral disc protrusion measuring 1.2 cm which likely displaces the adjacent L3 nerve root. 3. No high-grade central canal or foraminal narrowing. 4. Left nephrolithiasis. ACT 112: Negative or not required by law. The above report was generated using voice recognition software. It may contain grammatical, syntax or spelling errors. Electronically signed by: Braeden Mcintosh M.D. 07/16/2024 8:[address] 07/16/24 08:04 CT pelvis wo con CLINICAL HISTORY: Low back pain into R hip/leg pain COMPARISON STUDY: None FINDINGS: There are mild degenerative changes at both hips without significant joint space narrowing, right greater than left. No fracture or dislocation. There is a tiny bone island at the right acetabulum. No significant osseous lesion or osteomyelitis seen. SI joints are unremarkable. No soft tissue abscess or hematoma seen. Uterus and adnexal regions are grossly unremarkable. Urinary bladder is nondistended. Visualized bowel shows no inflammation or obstruction. No pelvic free fluid. IMPRESSION: Mild degenerative changes at the right hip. No acute findings. ACT 112: Negative or not required by law. Electronically signed by: Vish Payan M.D. 07/16/2024 9:00 AM Code Status & VTE Plan VTE Prophylaxis Plan VTE Prophylaxis will be ordered: Yes Supervising Physician Co-Signing Physician Notes Patient is a 58-year-old female with history of hypothyroidism, mood disorder and no other significant past medical history presents with history of lower back pain radiating to right groin since 2 days duration. Patient denies any focal weakness, numbness, bowel or bladder incontinence, chest pain, dyspnea, fall, trauma. Patient states having worsening lower back pain especially with ambulation. Please review HPI for complete details of presentation. I personally reviewed blood work and imaging studies. Lumbar CT showed L3-L4 disc protrusion which displaces the descending L3 nerve root. Physical Exam: Vitals signs as noted above General Appearance:Obese, no apparent distress Head: normocephalic, Atraumatic Eyes: normal inspection, EOMI Neck: supple, Trachea midline Respiratory/Chest: Normal breath sounds, CTA, No accessory muscle use Cardiovascular: S1, S2, No murmur Abdomen/GI:Soft, Non tender, Bowel sounds present Extremities/Musculoskeletal:normal inspection, no edema Neurologic/Psych:AAOX3, grossly no focal neurological deficits, + Right straight leg raise test Skin: normal color, warm Lumbar disc herniation Ambulatory dysfunction Pain control, PT OT, fall precautions Consulted orthospine Hypertension Blood pressure elevated likely situational secondary to pain Monitor I personally interviewed and examined the patient at bedside. I have reviewed the advanced practitioner's documentation on the date of service referred in note and agree with plan. Patient's care is coordinated with Xochilt VIZCAINO. Please refer to the documentation above for details of patient's presentation and for discussion of other issues. I spent a total of32 minutes minutes coordinating, documenting, and providing care for this patient excluding time spent in the performance of separately billed services or time spent by another provider/QHP.
[2024-07-16] MEDS: METHOCARBAMOL 500 MG TABLET PO SCH (14:00)
[2024-07-16] MEDS: ACETAMINOPHEN 325 MG TAB PO PRN (16:56)
[2024-07-16] MEDS: HYDROmorphone INJ 0.5 MG/0.5 ML SYR IV PRN (18:37)
[2024-07-16] MEDS: HYDROmorphone INJ 0.5 MG/0.5 ML SYR IV STA (20:35)
[2024-07-16] MEDS: ESCITALOPRAM OXALATE 20 MG TAB PO SCH (20:36)
[2024-07-16] MEDS: LIDOCAINE 5% 1 PATCH TD SCH (21:38)
[2024-07-17] MEDS: KETOROLAC TROMETHAMINE 15 MG/ML VIAL IV ONE (01:23)
[2024-07-17] MEDS: LEVOTHYROXINE SODIUM 112 MCG TABLET PO SCH (05:41)
[2024-07-17 06:01] LABS: Hematocrit (blood only) 39.5 % (37.0-47.0); Hemoglobin 13.3 g/dl (12.0-16.0); Mean Corpuscular Hemoglobin 28.4 pg (25.0-34.0); Mean Corpuscular Hgb Conc 33.7 g/dL (32.0-36.0); Mean Corpuscular Volume 84.2 fL (80.0-100.0); Mean Platelet Volume 9.8 fL (9.4-12.4); Platelet Count 291 K/uL (130-400); RDW Coefficient of Variation 13.2 % (11.5-14.5); RDW Standard Deviation 40.6 fL (36.4-46.3); Red Blood Count 4.69 M/uL (4.20-5.40); White Blood Count 12.53 K/ul (4.8-10.8)
[2024-07-17 06:19] LABS: BUN Creatinine Ratio 25.7 (10-20); Calcium 7.6 mg/dl (8.6-10.3); Creatinine Clr Calc Pharmacy 65.7 ml/min; Magnesium 2.3 mg/dl (1.7-2.4); Potassium 4.3 mmol/L (3.5-5.1)
[2024-07-17] MEDS ORDERED: HYDROmorphone INJ 0.5 MG/0.5 ML SYR IV PRN (07:57)
--- NOTE | 2024-07-17 08:20 | Hospitalist Progress Note ---
Date of Service July 17, 2024 Assessment & Plan (1) Protrusion of lumbar intervertebral disc: (2) Abnormal CT scan, lumbar spine: (3) Acute right lumbar radiculopathy: Plan: Patient is 58-year-old female with PMH papillary thyroid cancer s/p thyroidectomy, postsurgical hypothyroidism, chronic hypocalcemia, anxiety, depression, RODY, obesity seen with right lower back, right groin and right upper extremity pain Yesterday had CT L-spine and pelvis: No acute fracture or subluxation. At L3-L4 there is a far right lateral disc protrusion measuring 1.2 cm which likely displaces the adjacent L3 nerve root. No high-grade central canal or foraminal narrowing. Was on as needed Tylenol, Dilaudid and had lidocaine patch. Overnight pain was not controlled. Did receive Toradol x 1 dose with reported moderate relief Will change to scheduled Tylenol, oxycodone, Toradol, Dilaudid as needed pain Continue lidocaine patch, methocarbamol Ortho spine consult. MRI L spine ordered and pending results for further recommendations and plan. MRI Lumbar spine: Moderate size far right lateral disc herniation at L3-L4 which contacts the exiting right L3 nerve root. No additional disc herniations. Patent central canal. No lumbar spine fractures. #Leukocytosis WBC: 12.5 Received steroids yesterday. Likely cause. No infectious symptoms at this time Repeat CBC in am #Hyperglycemia Elevated morning glucose: 174 H/O Gestational diabetes without further diagnosis diabetes Was given steroids yesterday. Possible prediabetes Repeat BMP tomorrow morning and add A1c (4) Papillary carcinoma of thyroid: (5) Post-surgical hypothyroidism: Plan: S/P Thyroidectomy Continue levothyroxine TSH in am (6) Hypocalcemia: Plan: History of chronic hypocalcemia Per outpatient chart review: Outpatient workup included 09/03/22: PTH: 43 (range 16-77), ionized calcium: 4.8 (range 4.7-5.5), calcium: 8.4 (range 8.6-10.4), TSH: 4.1 Today Ca: 7.6. Was 8.5 yesterday On home calcium supplements and calcium rich diet, which she has not received yet in hospital Resume home calcium supplements Repeat BMP in am, ionized calcium and magnesium labs in am (7) Anxiety and depression: Plan: Continue home escitalopram (8) RODY (obstructive sleep apnea): Plan: CPAP HS DVT Prophylaxis Currently on Lovenox SQ. Will stop and change to SCDs in case of needing interventional injection or if surgical intervention warranted. PCP: Cherie VIZCAINO Admitted med-surg Dispo: uncertain at this time I spent a total of 45 minutes reviewing notes, outpatient records, labs, medication, coordinating, documenting and providing care for this patient excluding time spent in the performance of separately billed services and excluding time spent by another provider/QHP. Admission and Anticipated Discharge Date Admission Date: July 16, 2024 Supervising Physician Co-Signing Physician Notes Patient seen and examined independently. Discussed with above provider. Patient reports pain and numbness on right thigh on minimal movement. MRI of lumbar spine shows moderate size far right lateral disc herniation at L3/L4 which contacts the exiting L3 nerve root. Continue pain control Will follow-up on recommendation from orthospine after lumbar MRI I have reviewed the advanced practitioner's documentation, and I agree with, and take responsibility for the plan of care I spent a total of 15 minutes coordinating, documenting, and providing care for this patient excluding time spent in the performance of separately billed services. All of the aforementioned completed while collaborating with the assigned advanced practitioner for a full treatment plan Subjective Patient seen and examined in room 321-1. Sitting up in bed. Reports overnight was having significant pain to right groin and right upper extremity. Reports minimal pain to low back currently. Patient felt Dilaudid did not help. She was given dose of Toradol which patient felt helped the most. Reports lying in bed at rest pain is controlled. With any attempted movement has pain. States has some paresthesias to right upper thigh. Is awaiting MRI L-spine. Denies loss control of bowel or bladder. No BM today. Denies fever/chills, N/V, SCOTT, dizziness, CP, SOB, palpitations, cough, rhinorrhea, abdominal pain, extremity weakness, extremity edema, rashes, urinary symptoms. Review of Systems Review of Systems: All systems reviewed & are unremarkable except as noted in HPI & below Physical Exam Physical Exam: General: no acute distress at rest, obese female Head: normocephalic, atraumatic Eyes: conjunctiva non-injected, anicteric ENT: normal inspection external ears, nose, mucous membranes moist Neck: supple, trachea midline Lungs: clear, no respiratory distress, no wheezing/rhonchi/rales CV: RRR, no murmur, no pretibial edema Abd: normal BS, soft, non-tender Ext: no cyanosis, no calf tenderness, +reproduced right groin pain with flexion of right hip. bilateral pedal pushes and pulls intact. sensation to light touch intact bilaterally Neuro: A&O x 3, no focal deficits noted, normal affect Skin: warm, dry Results & Data Results & Data Vital Signs (Past 12 Hours) Vital Signs Temp Pulse Pulse Resp BP Pulse Ox O2 Del Method 07/17/24 07:09 36.8 C 73 18 103/67 95 Room Air 07/17/24 02:20 79 14 94 FiO2 07/17/24 07:09 07/17/24 02:20 21 Laboratory Results Short CBC 07/17/24 Range/Units 05:43 WBC 12.53 H (4.8-10.8) K/ul Hgb 13.3 (12.0-16.0) g/dl Hct 39.5 (37.0-47.0) % Plt Count 291 (130-400) K/uL BMP 07/17/24 05:43 Sodium 137 Potassium 4.3 Chloride 106 Carbon Dioxide 24 BUN 27 H Creatinine 1.05 Glucose 174 H Calcium 7.6 L Diagnostic Findings Lumbar Spine MRI 07/17/24 08:27 MRI OF THE LUMBAR SPINE WITHOUT CONTRAST CLINICAL HISTORY: Low back pain radiating into right lower extremity. COMPARISON STUDY: Lumbar spine CT July 16, 2024. TECHNIQUE: Utilizing a 1.5 Alina magnet and dedicated coil, multiplanar, multiecho imaging of the lumbar spine was performed without IV contrast. FINDINGS: For purposes of numbering on this exam, the L5-S1 disc space is assigned to axial image 27 of 30. Vertebral body heights are maintained within the lumbar spine fracture. There is no marrow replacement. There is no intracanalicular mass or fluid collection. Conus terminates at the upper L2 level. Paravertebral soft tissues are unremarkable. L1-2: The central canal and neural foramen are patent. L2-3: The central canal and neural foramen are patent L3-4: The central canal and left neural foramen are patent. There is a 0.9 x 0.6 x 0.5 cm far right lateral disc protrusion. This contacts the exiting right L3 nerve root. L4-5: Central canal and neural foramen are patent. There is mild facet arthrosis. L5-S1: The central canal and neural foramen are patent. IMPRESSION: 1. Moderate size far right lateral disc herniation at L3-L4 which contacts the exiting right L3 nerve root. This could be correlated with right L3 radiculopathy. 2. No additional disc herniations. Patent central canal. 3. No lumbar spine fractures. ACT 112: Negative or not required by law. Electronically signed by: Marco Summers M.D. 07/17/2024 11:42 AM
--- NOTE | 2024-07-17 08:27 | Orthopedic Consultation ---
Date of Consultation July 17, 2024 Assessment & Plan (1) Protrusion of lumbar intervertebral disc: Assessment foraminal disc herniation L3-L4 on the right. Plan at this time I am able to appreciate foraminal compromise L3-L4 on the right on the CAT scan. I would like to obtain an MRI lumbar spine for much better visualization of the neural anatomy and true neural compression. After reviewing MRI and make further recommendations with the patient which may include interventional pain management continue physical therapy ultimately surgical invention. History of Present Illness Reason for Consultation: Back and right leg pain Attending Physician: Mikal Meraz MD History of Present Illness This a very pleasant 58-year-old female who presents with marked decline in status over the past day with severe back and right leg pain. She feels she has had subtle symptoms of this pain pattern for several months but it became severe yesterday. She denies any specific trauma fall event. Involves the right buttock right anterior thigh to the knee. The left lower extremity is asymptomatic. She has marked difficulty walking. Toradol is providing some relief. She is comfortable at rest this morning. Denies any loss of bowel or bladder control. She has numbness and tingling extending down the right lower extremity. Allergies Allergy/AdvReac Type Severity Reaction Status Date / Time Sulfa (Sulfonamide Allergy Unknown REACTION Verified 06/23/09 03:27 Antibiotics) WHEN A CHILD Home Medications Medication Instructions Recorded Confirmed Type levothyroxine 112 mcg tablet 112 mcg PO DAILY ##0 05/22/07 07/16/24 History escitalopram oxalate 20 mg tablet 20 mg PO HS 07/16/24 07/16/24 History ibuprofen 1 tab PO DIRECTED PRN Pain 07/16/24 07/16/24 History Patient History Medical History Hypothyroidism (acquired) Surgical History No significant past surgical history Social History (Updated 05/06/21 @ 18:32 by Abel Coppola) Smoking Status: Never smoker Second Hand Exposure: No; Do You Dip or Chew Tobacco: No; Tobacco Cessation Education Requested by Patient: No Hx Alcohol Use: No Hx Substance Use: No Preferred Language: Georgian Communication Ability: Effective Maintenance Service Dispatcher Required: No Beliefs That Will Affect Care: None marital status: Current Living Situation: Spouse current occupational status: employed Other Information That Helps Us Care for You: No Feels Safe at Home: Yes Safety Concerns: Feels Safe At This Time Assistive Devices: CPAP and Glasses Physical Exam Physical Exam: Patient has +5-5 bilateral extensor houses longus plantarflexion. She is a 5/5 left quadriceps. On the right is a 4/5. There is sensory deficits to lower extremity. D10 reflexes diminished. Results & Data Vital Signs (Past 12 Hours) Vital Signs Temp Pulse Pulse Resp BP Pulse Ox O2 Del Method 07/17/24 07:09 36.8 C 73 18 103/67 95 Room Air 07/17/24 02:20 79 14 94 FiO2 07/17/24 07:09 07/17/24 02:20 21
[2024-07-17] MEDS: ACETAMINOPHEN 500 MG TAB PO SCH (08:31)
[2024-07-17] MEDS: oxyCODONE HCL IR 5 MG TAB (IMMEDIATE RELEASE) PO PRN (08:32)
[2024-07-17] MEDS: ENOXAPARIN INJ 40 MG/0.4 ML SYR SQ SCH (09:29)
--- NOTE | 2024-07-17 11:44 | Magnetic Resonance Report ---
MRI OF THE LUMBAR SPINE WITHOUT CONTRAST CLINICAL HISTORY: Low back pain radiating into right lower extremity. COMPARISON STUDY: Lumbar spine CT July 16, 2024. TECHNIQUE: Utilizing a 1.5 Alina magnet and dedicated coil, multiplanar, multiecho imaging of the [facility] spine was performed without IV contrast. FINDINGS: For purposes of numbering on this exam, the L5-S1 disc space is assigned to axial image 27 of 30. Kiki tebral body heights are maintained within the lumbar spine fracture. There is no marrow replacement. There is no intracanalicular mass or fluid collection. Conus terminates at the upper L2 level. Parave rtebral soft tissues are unremarkable. L1-2: The central canal and neural foramen are patent. L2-3: The central canal and neural foramen are patent L3-4: The central canal and left neural foramen are patent. There is a 0.9 x 0.6 x 0.5 cm far right l ateral disc protrusion. This contacts the exiting right L3 nerve root. L4-5: Central canal and neural foramen are patent. There is mild facet arthrosis. L5-S1: The central canal and neural foramen are patent. IMPRESSION: 1. Moderate size far right lateral disc herniation at L3-L4 which contacts the exiting right L3 nerve root. This could be correlated with right L3 radiculopathy. 2. No additional disc herniations. Patent central canal. 3. No lumbar spine fractures. ACT 112: Negative or not required by law. Electronically signed by: Marco Summers M.D. 07/17/2024 11:42 AM
[2024-07-17] MEDS ORDERED: bisacodyL 10 MG SUPP PR PRN (12:06)
[2024-07-17] MEDS ORDERED: MAGNESIUM HYDROXIDE SUSP 30 ML UDC PO PRN (12:06)
[2024-07-17] MEDS ORDERED: NALOXONE HCL 0.4 MG/1 ML VIAL/CARP IV PRN (12:06)
[2024-07-17] MEDS: KETOROLAC TROMETHAMINE 15 MG/ML VIAL IV PRN (12:59)
[2024-07-17] MEDS: DOCUSATE SODIUM 100 MG CAP PO ONE (13:09)
[2024-07-17] MEDS: CALCIUM CARBONATE 500 MG CHEWABLE TAB PO ONE (13:09)
[2024-07-17] MEDS: POLYETHYLENE (MIRALAX) 17 GM PACK PO ONE (13:09)
[2024-07-17] MEDS: DOCUSATE SODIUM/SENNA 50/8.6MG TAB PO SCH (20:55)
[2024-07-18] MEDS ORDERED: POLYETHYLENE (MIRALAX) 17 GM PACK PO PRN
[2024-07-18 06:10] LABS: Basophils # (auto) 0.02 K/uL (0.00-0.20); Basophils % (auto) 0.2 %; Eosinophils # (auto) 0.03 K/uL (0.00-0.50); Eosinophils % (auto) 0.3 %; Hematocrit (blood only) 37.9 % (37.0-47.0); Hemoglobin 12.6 g/dl (12.0-16.0); Immature Granulocytes # (auto) 0.12 K/uL (0.01-0.20); Immature Granulocytes % (auto) 1.1 %; Lymphocytes # (auto) 2.02 K/uL (1.20-3.40); Lymphocytes % (auto) 17.8 %; Mean Corpuscular Hemoglobin 28.1 pg (25.0-34.0); Mean Corpuscular Hgb Conc 33.2 g/dL (32.0-36.0); Mean Corpuscular Volume 84.6 fL (80.0-100.0); Mean Platelet Volume 9.5 fL (9.4-12.4); Monocytes # (auto) 0.83 K/uL (0.11-0.59); Monocytes % (auto) 7.3 %; Neutrophils # (auto) 8.36 K/uL (1.40-6.50); Neutrophils % (auto) 73.3 %; Platelet Count 277 K/uL (130-400); RDW Coefficient of Variation 13.6 % (11.5-14.5); Red Blood Count 4.48 M/uL (4.20-5.40); White Blood Count 11.38 K/ul (4.8-10.8)
[2024-07-18 06:35] LABS: BUN Creatinine Ratio 31.4 (10-20); Calcium 7.6 mg/dl (8.6-10.3); Creatinine Clr Calc Pharmacy 80.2 ml/min; Magnesium 2.1 mg/dl (1.7-2.4); Potassium 4.3 mmol/L (3.5-5.1)
[2024-07-18 07:04] LABS: Thyroid Stimulating Hormone 0.246 uIu/ml (0.300-4.500)
[2024-07-18 07:39] LABS: T4 Free Thyroxine 1.02 ng/dl (0.61-1.60)
--- NOTE | 2024-07-18 08:07 | Hospitalist Progress Note ---
Date of Service July 18, 2024 Assessment & Plan (1) Protrusion of lumbar intervertebral disc: (2) Abnormal CT scan, lumbar spine: (3) Acute right lumbar radiculopathy: Plan: Patient is 58-year-old female with PMH papillary thyroid cancer s/p thyroidectomy, postsurgical hypothyroidism, chronic hypocalcemia, anxiety, depression, RODY, obesity seen with right lower back, right groin and right upper extremity pain 07/16/24 CT L-spine and pelvis: No acute fracture or subluxation. At L3-L4 there is a far right lateral disc protrusion measuring 1.2 cm which likely displaces the adjacent L3 nerve root. No high-grade central canal or foraminal narrowing. 07/17/24: MRI Lumbar spine: Moderate size far right lateral disc herniation at L3- L4 which contacts the exiting right L3 nerve root. No additional disc herniations. Patent central canal. No lumbar spine fractures. Scheduled Tylenol, oxycodone, Toradol, Dilaudid as needed pain Continue lidocaine patch, methocarbamol Discussed with pt, pending Dr Stapleton recommendations, if doesn't feel injection helpful we may try further systemic steroids. Will hold on this until seen by Dr Stapleton. Ortho spine consult. Per Dr Stapleton: Going to have physical therapy work with her today to attempt stairs. She does live in a split-level home. Will also consult interventional pain management for possible injection. We discussed that we would try an injection if this fails to improve her pain we may ultim ately consider surgery for removal of the extraforaminal disc. #Leukocytosis WBC: 11.4. Improved from 12.5 yesterday Received steroids on 07/16/24 and is likely cause. No infectious symptoms at this time #Hyperglycemia #Prediabetes Elevated morning glucose: 174 on 07/17/24. Was given steroids on day of admission. Today fasting glucose improved at 95 A1c: 6.1. Consistent with prediabetes. Patient wants normal diet. Will continue to monitor. If pt would require further steroids would have further discussion about following diabetic diet (4) Papillary carcinoma of thyroid: (5) Post-surgical hypothyroidism: Plan: S/P Thyroidectomy TSH: 0.2 Continue levothyroxine (6) Hypocalcemia: Plan: History of chronic hypocalcemia Per outpatient chart review: Outpatient workup included 09/03/22: PTH: 43 (range 16-77), ionized calcium: 4.8 (range 4.7-5.5), calcium: 8.4 (range 8.6-10.4), TSH: 4.1 Today Ca: 7.6, same as yesterday. Unfortunately pt did not receive her normal home calcium supplements and calcium rich diet Resume home calcium supplements Repeat BMP in am (7) Anxiety and depression: Plan: Continue home escitalopram (8) RODY (obstructive sleep apnea): Plan: CPAP HS DVT Prophylaxis Currently on SCDs in case of needing interventional injection or if surgical intervention warranted. PCP: Cherie VIZCAINO Admitted med-surg Dispo: uncertain at this time I spent a total of 40 minutes reviewing notes, outpatient records, labs, medication, coordinating, documenting and providing care for this patient excluding time spent in the performance of separately billed services and excluding time spent by another provider/QHP. Admission and Anticipated Discharge Date Admission Date: July 16, 2024 Supervising Physician Co-Signing Physician Notes Discussed with above provider. Orthopedic notes reviewed; plan for physical therapy evaluation and possible pain management intervention. Pain management consulted. Continue medication for pain control. I have reviewed the advanced practitioner's documentation, and I agree with, and take responsibility for the plan of care Subjective Patient seen and examined in room 321-1. Is sitting up in bed. Patient reports yesterday afternoon and evening pain was almost completely controlled. Reports earlier this morning having discomfort to right lower back and right superior/lateral buttock with pain radiating to right thigh. Has continued right thigh paresthesias that are unchanged. States took oxycodone earlier this morning on empty stomach and after was having some nausea. Patient declined any nausea medication. She reports eating breakfast and nausea is subsiding. Denies any vomiting. States had small BM yesterday. Currently awaiting further input by Dr Stapleton to determine further plan. Patient voices concern about being able to manage pain at home and her ability to do her tasks at work. Denies fever/chills, diaphoresis, diarrhea, SCOTT, dizziness, neck pain, CP, SOB, cough, abdominal pain, extremity edema, rashes, urinary symptoms. Review of Systems Review of Systems: All systems reviewed & are unremarkable except as noted in HPI & below Physical Exam Physical Exam: General: no acute distress at rest, obese female Head: normocephalic, atraumatic Eyes: conjunctiva non-injected, anicteric ENT: normal inspection external ears, nose, mucous membranes moist Neck: supple, trachea midline Lungs: clear, no respiratory distress, no wheezing/rhonchi/rales CV: RRR, no murmur, no pretibial edema Abd: normal BS, soft, non-tender Back: no skin discoloration, +mild tenderness to palpation right buttock region, no spinous process tenderness to palpation Ext: no cyanosis, no calf tenderness, +reproduced right groin pain with flexion of right hip. bilateral pedal pushes and pulls intact. sensation to light touch intact bilaterally Neuro: A&O x 3, no focal deficits noted, normal affect Skin: warm, dry Results & Data Results & Data Vital Signs (Past 12 Hours) Vital Signs Temp Pulse Resp BP BP Pulse Ox O2 Del Method 07/18/24 07:34 36.9 C 59 L 18 148/83 H 97 Room Air 07/17/24 20:42 36.8 C 67 14 138/84 96 Room Air Laboratory Results Short CBC 07/18/24 Range/Units 05:52 WBC 11.38 H (4.8-10.8) K/ul Hgb 12.6 (12.0-16.0) g/dl Hct 37.9 (37.0-47.0) % Plt Count 277 (130-400) K/uL BMP 07/18/24 05:52 Sodium 137 Potassium 4.3 Chloride 105 Carbon Dioxide 27 BUN 27 H Creatinine 0.86 Glucose 95 Calcium 7.6 L
[2024-07-18] MEDS: CALCIUM 600MG + VIT D 400 IU TAB PO SCH (08:17)
[2024-07-18] MEDS: CALCIUM CARBONATE 500 MG CHEWABLE TAB PO SCH (08:58)
[2024-07-18] MEDS ORDERED: CALCIUM CARBONATE 500 MG CHEWABLE TAB PO SCH (09:00)
[2024-07-18] MEDS ORDERED: [UNRECOGNIZED DRUG - OTHER] PO SCH (09:00)
[2024-07-18 09:33] LABS: Estimated Average Glucose 128 mg/dl; Hemoglobin A1C 6.1 % (4.5-5.6)
--- NOTE | 2024-07-18 09:46 | Orthopedic Progress Note ---
Date of Service July 18, 2024 Assessment & Plan (1) Acute right lumbar radiculopathy: Plan: MRI of the lumbar spine available for review. Confirms extraforaminal disc herniation L3-L4 on the right with encroachment of the exiting L3 nerve root. This is consistent with her symptom complex. We are going to have physical therapy work with her today to attempt stairs. She does live in a split-level home. Will also consult interventional pain management for possible injection. We discussed that we would try an injection if this fails to improve her pain we may ultimately consider surgery for removal of the extraforaminal disc. Admission and Anticipated Discharge Date Admission Date: July 16, 2024 Subjective Patient continues to have significant incapacitating right leg pain. Is markedly exacerbated with standing and walking. Physical Exam Physical Exam: Patient currently in bed. No changes in exam. Results & Data Vital Signs (Past 12 Hours) Vital Signs Temp Pulse Resp BP Pulse Ox O2 Del Method 07/18/24 07:34 36.9 C 59 L 18 148/83 H 97 Room Air
[2024-07-19] MEDS: ONDANSETRON INJ 2 MG/ML 2 ML VIAL IV PRN (03:08)
[2024-07-19 06:39] LABS: BUN Creatinine Ratio 28.6 (10-20); Calcium 8.1 mg/dl (8.6-10.3); Creatinine Clr Calc Pharmacy 75.8 ml/min
--- NOTE | 2024-07-19 09:09 | Pain Management Consultation ---
Date of Consultation July 19, 2024 Assessment & Plan (1) Protrusion of lumbar intervertebral disc: (2) Acute right lumbar radiculopathy: Plan 1. Discussed with the patient her MRI and how it contributes to her current pain pattern. At this time, recommend a right L3-4 transforaminal epidural steroid injection. Unfortunately she has eaten breakfast already today and must be n.p.o. for the procedure. This will be performed tomorrow at 11:30 AM in special procedures radiology. She was consented, except the risk, benefits, expectations were reviewed. 2. Recommend addition of gabapentin 300 mg p.o. twice daily. Orders are written 3. Agree with other orders as current 4. PT once outpatient/able 5. Thank you for this consultation we will follow-up with her tomorrow for injection. History of Present Illness Attending Physician: Mikal Meraz MD History of Present Illness 58-year-old female who presented to the [facility] emergency room on 07/16/2024 with right sided low back pain and L3-4 right sided radicular symptoms. 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 Pain has been present since approximately 07/14/2024. She reports pain ranges between 2-9 out of 10 sharp shooting. She denies bowel or bladder incontinence, motor weakness, foot drop, fever, chills, saddle anesthesia, falls. She reports she is able to weight-bear with difficulty but for only short periods of time. She is able to easily logroll in a chair. She reports concerns about being discharged secondary to multiple stairs in her home. MRI of the lumbar spine reveals a right far lateral disc protrusion at L3-4. Orthospine was consulted and recommends interventional pain management at this time. Pain Assessment Full [facility] Front + [facility]: 2 [facility]: 4-Mild to Mod - Interrupts ADLs. Decrease in job performance Pain scale - at its best (0-10): 2 Pain scale - at its worst (0-10): 9 Allergies Allergy/AdvReac Type Severity Reaction Status Date / Time Sulfa (Sulfonamide Allergy Unknown REACTION Verified 06/23/09 03:27 Antibiotics) WHEN A CHILD Home Medications Medication Instructions Recorded Confirmed Type levothyroxine 112 mcg tablet 112 mcg PO DAILY ##0 05/22/07 07/17/24 History escitalopram oxalate 20 mg tablet 20 mg PO HS 07/16/24 07/17/24 History ibuprofen 1 tab PO DIRECTED PRN Pain 07/16/24 07/17/24 History calcium 1,000 mg (as 2 tab PO DAILY 07/17/24 07/17/24 History carbonate)-vitamin D3 20 mcg (800 unit) tablet calcium carbonate (Tums E-X) 2 tab PO DAILY 07/17/24 07/17/24 History cetirizine 10 mg tablet 10 mg PO DAILY PRN allergies 07/17/24 07/17/24 History iron bis glycinate jamal 28 mg 1 cap PO DAILY 07/17/24 07/17/24 History iron-vit C 60 mg-FA 400 mcg-B12 8mcg cap (Gentle Iron) multivitamin 1 tab PO DAILY 07/17/24 07/17/24 History Pain History Pain Intensity Pain scale - at its best (0-10): 2 Pain scale - at its worst (0-10): 9 Patient History Medical History Anxiety and depression Obesity Hypocalcemia RODY (obstructive sleep apnea) Papillary carcinoma of thyroid Post-surgical hypothyroidism Surgical History History of thyroidectomy Social History Smoking Status: Never smoker Second Hand Exposure: No; Do You Dip or Chew Tobacco: No; Tobacco Cessation Education Requested by Patient: No Hx Alcohol Use: No Hx Substance Use: No Preferred Language: [place] Communication Ability: Effective Patient Representative Required: No Beliefs That Will Affect Care: None marital status: Current Living Situation: Spouse current occupational status: employed Other Information That Helps Us Care for You: No Feels Safe at Home: Yes Safety Concerns: Feels Safe At This Time Assistive Devices: CPAP and Glasses Physical Exam 2 Physical Exam: Constitutional: Well-developed, well-nourished, healthy-appearing, obese Psych: Awake, alert, and oriented 3 with normal affect and mood. Recent memory appears grossly intact Eyes: Pupils are equally round and reactive to light with normal size pupils, eyelids appear normal Ear, nose, mouth, and throat: Moist nasal and oral membranes, lips and tongues appear normal, no external ear abnormalities are noted Neck: The trachea is midline without deviation Respiratory: Normal respiratory effort without distress, no audible wheezes or rhonchi CV: Normal S1 and S2, warm distal extremities Chest: Deferred Musculoskeletal: Head is normocephalic and atraumatic, gait not observed but able to easily sit up and logroll in bed. Cervical: Lordotic curve: Normal Range of motion is normal with extension, flexion, side-bending, rotation Strength: Strength is grossly equal bilaterally with 5 out of 5 strength in all planes Lumbar: Lordotic curve: Normal Range of motion is normal with extension, flexion, side-bending, rotation Tenderness: Moderately tender over the axial midline Facet provocation: Negative bilaterally Straight leg raise: Negative bilaterally Step-off injuries: None Strength: Strength is equal bilaterally with 5 out of 5 strength in all planes Sensation of lower extremities: Intact bilaterally Deep tendon reflexes: Rated at 2+ in bilateral L4 and S1 Myofascial spasm: Moderate lumbar paraspinal spasm. No discrete trigger points noted Greater trochanters: Nontender bilaterally Sacroiliac joints: Nontender bilaterally Pathologic reflexes noted: None Skin: No rashes, lesions, ulcers, or induration noted Neuro: No nystagmus noted, the tongue is midline, the patient is able to rotate their head bilaterally : Deferred Results (Pain Clinic) Diagnostic Review MRI: non enhanced, reports reviewed and findings discussed with patient MRI Findings: 07/17/24 MRI OF THE LUMBAR SPINE WITHOUT CONTRAST CLINICAL HISTORY: Low back pain radiating into right lower extremity. COMPARISON STUDY: Lumbar spine CT July 16, 2024. TECHNIQUE: Utilizing a 1.5 Alina magnet and dedicated coil, multiplanar, multiecho imaging of the lumbar spine was performed without IV contrast. FINDINGS: For purposes of numbering on this exam, the L5-S1 disc space is assigned to axial image 27 of 30. Vertebral body heights are maintained within the lumbar spine fracture. There is no marrow replacement. There is no intracanalicular mass or fluid collection. Conus terminates at the upper L2 level. Paravertebral soft tissues are unremarkable. L1-2: The central canal and neural foramen are patent. L2-3: The central canal and neural foramen are patent L3-4: The central canal and left neural foramen are patent. There is a 0.9 x 0.6 x 0.5 cm far right lateral disc protrusion. This contacts the exiting right L3 nerve root. L4-5: Central canal and neural foramen are patent. There is mild facet arthrosis. L5-S1: The central canal and neural foramen are patent. IMPRESSION: 1. Moderate size far right lateral disc herniation at L3-L4 which contacts the exiting right L3 nerve root. This could be correlated with right L3 radiculopathy. 2. No additional disc herniations. Patent central canal. 3. No lumbar spine fractures.
[2024-07-19] MEDS: GABAPENTIN 300 MG CAP PO SCH (09:26)
--- NOTE | 2024-07-19 09:42 | Hospitalist Progress Note ---
Date of Service July 19, 2024 Assessment & Plan (1) Protrusion of lumbar intervertebral disc: (2) Abnormal CT scan, lumbar spine: (3) Acute right lumbar radiculopathy: Plan: Patient is 58-year-old female with PMH papillary thyroid cancer s/p thyroidectomy, postsurgical hypothyroidism, chronic hypocalcemia, anxiety, depression, RODY, obesity seen with right lower back, right groin and right upper extremity pain 07/16/24 CT L-spine and pelvis: No acute fracture or subluxation. At L3-L4 there is a far right lateral disc protrusion measuring 1.2 cm which likely displaces the adjacent L3 nerve root. No high-grade central canal or foraminal narrowing. 07/17/24: MRI Lumbar spine: Moderate size far right lateral disc herniation at L3- L4 which contacts the exiting right L3 nerve root. No additional disc herniations. Patent central canal. No lumbar spine fractures. Scheduled Tylenol, oxycodone, Toradol, Dilaudid as needed pain Continue lidocaine patch, methocarbamol Ortho spine consult. Per Dr Stapleton: Going to have physical therapy work with her today to attempt stairs. She does live in a split-level home. Will also consult interventional pain management for possible injection. We discussed that we would try an injection if this fails to improve her pain we may ultimately consider surgery for removal of the extraforaminal disc. She was seen and examined by Pain management and plan is for epidural steroid injection tomorrow @ 1130, she will need to be NPO Pain management also started on gabapentin 300mg bid She is also maintaining on robaxin, Oxy and Lidocaine. It appears toradol has been placed on hold for upcoming injection procedure. #Leukocytosis WBC: 11.4. Improved from 12.5 yesterday Received steroids on 07/16/24 and is likely cause. No infectious symptoms at this time #Hyperglycemia #Prediabetes Elevated morning glucose: 174 on 07/17/24. Was given steroids on day of admission. Today fasting glucose improved at 95 A1c: 6.1. Consistent with prediabetes. Patient wants normal diet. Will continue to monitor. If pt would require further steroids would have further discussion about following diabetic diet (4) Papillary carcinoma of thyroid: (5) Post-surgical hypothyroidism: Plan: S/P Thyroidectomy TSH: 0.2 Continue levothyroxine (6) Hypocalcemia: Plan: History of chronic hypocalcemia Per outpatient chart review: Outpatient workup included 09/03/22: PTH: 43 (range 16-77), ionized calcium: 4.8 (range 4.7-5.5), calcium: 8.4 (range 8.6-10.4), TSH: 4.1 Today Ca: 7.6, same as yesterday. Unfortunately pt did not receive her normal home calcium supplements and calcium rich diet Resume home calcium supplements will obtain repeat bmp, ionized calcium and albumin level in a.m. (7) Anxiety and depression: Plan: Continue home escitalopram (8) RODY (obstructive sleep apnea): Plan: CPAP HS DVT Prophylaxis Currently on SCDs in case of needing interventional injection or if surgical intervention warranted. PCP: Cherie VIZCAINO Admitted med-surg Dispo: uncertain at this time, pending steroid injection, she reports possibly being able to return to [facility] as it is a first floor set up with services vs possible acute rehab? I spent a total of 42 minutes reviewing notes, outpatient records, labs, medication, coordinating, documenting and providing care for this patient excluding time spent in the performance of separately billed services and excluding time spent by another provider/QHP. Pt was seen and examined in collaboration with Dr. Meraz, please see addendum Admission and Anticipated Discharge Date Admission Date: July 18, 2024 Supervising Physician Co-Signing Physician Notes Discussed with above provider. Plan for pain management intervention tomorrow a.m. N.p.o. from midnight Continue pain control I have reviewed the advanced practitioner's documentation, and I agree with, and take responsibility for the plan of care Subjective Pt was seen and examined in room 321-1. She met with pain management this morning. Plan is for epidural injection. She had a bad night last night starting at 0300. She reports needing to be more diligent on her pain meds before bed to help get through the night. She did report 4 good hours of sleep. She denies f/c/s, chest pain, sob, n/v/d. She is moving her bowels. Her appetite is good. Review of Systems Review of Systems: All systems reviewed & are unremarkable except as noted in HPI & below Physical Exam Physical Exam: Gen: WD/WN, F, lying in bed, appears to be comfortable, NAD, A&O x3 HEENT: Normocephalic, atraumatic, conjunctivae moist, sclerae anicteric, mucous membranes moist. Lung: Clear to Auscultation bilaterally, no wheezes/rales/rhonchi Heart: Regular rate, regular rhythm, no murmurs, rubs, or gallops Abdomen: Soft, NT, ND +BS x 4 Extremities: No edema Skin: Warm, no rash, negative turgor. Results & Data Results & Data Vital Signs (Past 12 Hours) Vital Signs Temp Pulse Resp BP Pulse Ox O2 Del Method 07/19/24 08:05 37.0 C 72 19 162/64 H 95 Room Air Laboratory Results BMP 07/19/24 05:51 Sodium 138 Potassium 4.0 Chloride 104 Carbon Dioxide 30 BUN 26 H Creatinine 0.91 Glucose 89 Calcium 8.1 L I have independently reviewed and interpreted patient's bmp. Medications Administered Current Inpatient Medications Acetaminophen (Acetaminophen 500 Mg Tab) 1,000 mg PO Q8H OMAIRA Stop: 08/16/24 07:59 Last Admin: 07/19/24 08:16 Dose: 1,000 mg Bisacodyl (Bisacodyl 10 Mg Supp) 10 mg IA DAILY PRN PRN Reason: Constipation Stop: 08/16/24 12:05 Calcium Carbonate (Calcium Carbonate 500 Mg Chewable Tab) 1,000 mg PO DAILY OMAIRA Stop: 08/17/24 08:59 Last Admin: 07/19/24 08:16 Dose: 1,000 mg Calcium/Vitamin D (Calcium 600mg + Vit D 400 Iu Tab) 2 tab PO DAILY OMAIRA Stop: 08/17/24 08:59 Last Admin: 07/19/24 08:17 Dose: 2 tab Cetirizine HCl (Cetirizine Hcl 10 Mg Tablet) 10 mg PO DAILY PRN PRN Reason: allergies Stop: 08/16/24 12:34 Escitalopram Oxalate (Escitalopram Oxalate 20 Mg Tab) 20 mg PO HS OMAIRA Stop: 08/15/24 20:59 Last Admin: 07/18/24 20:27 Dose: 20 mg Gabapentin (Gabapentin 300 Mg Cap) 300 mg PO BID OMAIRA Stop: 08/18/24 08:59 Last Admin: 07/19/24 09:26 Dose: 300 mg Hydromorphone HCl (Hydromorphone Inj 0.5 Mg/0.5 Ml Syr) 0.5 mg IV Q3H PRN PRN Reason: Severe Pain (Scale 7, 8, 9,10) Stop: 07/30/24 09:26 Ketorolac Tromethamine (Ketorolac Tromethamine 15 Mg/Ml Vial) 15 mg IV Q6H PRN PRN Reason: Pain Stop: 07/22/24 09:55 Last Admin: 07/19/24 03:08 Dose: 15 mg Levothyroxine Sodium (Levothyroxine Sodium 112 Mcg Tablet) 112 mcg PO DAILYBB [facility] Stop: 08/16/24 06:29 Last Admin: 07/19/24 05:28 Dose: 112 mcg Lidocaine (Lidocaine 5% 1 Patch) 1 patch TD DAILY [facility] Stop: 08/15/24 20:24 Last Admin: 07/19/24 08:17 Dose: 1 patch Magnesium Hydroxide (Magnesium Hydroxide Susp 30 Ml Udc) 30 ml PO DAILY PRN PRN Reason: Constipation Stop: 08/16/24 12:05 Methocarbamol (Methocarbamol 500 Mg Tablet) 500 mg PO TID [facility] Stop: 08/15/24 13:59 Last Admin: 07/19/24 08:16 Dose: 500 mg Miscellaneous (Remove Lidoderm Patch) 1 each N/A DAILY@2099 [facility] Stop: 08/15/24 20:59 Last Admin: 07/18/24 20:26 Dose: 1 each Miscellaneous (Remove Lidoderm Patch) 1 each N/A DAILY@2100 [facility] Stop: 08/16/24 08:59 Last Admin: 07/18/24 20:26 Dose: Not Given Naloxone HCl (Naloxone Hcl 0.4 Mg/1 Ml Vial/Carp) 0.1 mg IV UD PRN PRN Reason: Opiate Overdose Stop: 08/16/24 12:05 Ondansetron HCl (Ondansetron Inj 2 Mg/Ml 2 Ml Vial) 4 mg IV Q6H PRN PRN Reason: Nausea And Vomiting Stop: 08/17/24 07:41 Last Admin: 07/19/24 03:08 Dose: 4 mg Oxycodone HCl (Oxycodone Hcl Ir 5 Mg Tab (Immediate Release)) 5 mg PO Q4H PRN PRN Reason: Moderate Pain (Scale 4, 5, 6) Stop: 07/31/24 07:55 Last Admin: 07/19/24 08:16 Dose: 5 mg Polyethylene Glycol (Polyethylene (Miralax) 17 Gm Pack) 17 gm PO DAILY PRN PRN Reason: Constipation Stop: 08/17/24 00:00 Senna/Docusate Sodium (Docusate Sodium/Senna 50/8.6mg Tab) 2 tab PO HS [facility] Stop: 08/16/24 20:59 Last Admin: 07/18/24 20:23 Dose: Not Given
[2024-07-20 06:47] LABS: Hematocrit (blood only) 41.1 % (37.0-47.0); Hemoglobin 13.5 g/dl (12.0-16.0); Mean Corpuscular Hemoglobin 28.2 pg (25.0-34.0); Mean Corpuscular Hgb Conc 32.8 g/dL (32.0-36.0); Mean Corpuscular Volume 85.8 fL (80.0-100.0); Mean Platelet Volume 9.7 fL (9.4-12.4); Platelet Count 269 K/uL (130-400); RDW Coefficient of Variation 13.7 % (11.5-14.5); RDW Standard Deviation 42.8 fL (36.4-46.3); Red Blood Count 4.79 M/uL (4.20-5.40); White Blood Count 10.05 K/ul (4.8-10.8)
[2024-07-20 06:52] LABS: Albumin Level 3.5 gm/dl (3.4-5.0); BUN Creatinine Ratio 30.9 (10-20); Calcium 8.1 mg/dl (8.6-10.3); Creatinine Clr Calc Pharmacy 71.1 ml/min; Potassium 4.3 mmol/L (3.5-5.1)
--- NOTE | 2024-07-20 07:32 | Hospitalist Progress Note ---
Date of Service July 20, 2024 Assessment & Plan (1) Protrusion of lumbar intervertebral disc: (2) Abnormal CT scan, lumbar spine: (3) Acute right lumbar radiculopathy: Plan: Patient is 58-year-old female with PMH papillary thyroid cancer s/p thyroidectomy, postsurgical hypothyroidism, chronic hypocalcemia, anxiety, depression, RODY, obesity seen with right lower back, right groin and right upper extremity pain 07/16/24 CT L-spine and pelvis: No acute fracture or subluxation. At L3-L4 there is a far right lateral disc protrusion measuring 1.2 cm which likely displaces the adjacent L3 nerve root. No high-grade central canal or foraminal narrowing. 07/17/24: MRI Lumbar spine: Moderate size far right lateral disc herniation at L3- L4 which contacts the exiting right L3 nerve root. No additional disc herniations. Patent central canal. No lumbar spine fractures. Scheduled Tylenol, oxycodone, Toradol, Dilaudid as needed pain Continue lidocaine patch, methocarbamol Ortho spine consult. Per Dr Stapleton: Going to have physical therapy work with her today to attempt stairs. She does live in a split-level home. Will also consult interventional pain management for possible injection. We discussed that we would try an injection if this fails to improve her pain we may ultimately consider surgery for removal of the extraforaminal disc. She was seen and examined by Pain management and plan is for epidural steroid injection today @ 1130 Pain management also started on gabapentin 300mg bid She is also maintaining on robaxin, Oxy and Lidocaine. Plan for epidural injection today followed by rest. Plan to reassess with PT tomorrow in hopes to return home with home services tomorrow #Leukocytosis WBC: 11.4. Improved from 12.5 yesterday Received steroids on 07/16/24 and is likely cause. No infectious symptoms at this time resolved #Hyperglycemia #Prediabetes Elevated morning glucose: 174 on 07/17/24. Was given steroids on day of admission. Today fasting glucose improved at 95 A1c: 6.1. Consistent with prediabetes. Patient wants normal diet. Will continue to monitor. If pt would require further steroids would have further discussion about following diabetic diet (4) Papillary carcinoma of thyroid: (5) Post-surgical hypothyroidism: Plan: S/P Thyroidectomy TSH: 0.2 Continue levothyroxine (6) Hypocalcemia: Plan: History of chronic hypocalcemia Per outpatient chart review: Outpatient workup included 09/03/22: PTH: 43 (range 16-77), ionized calcium: 4.8 (range 4.7-5.5), calcium: 8.4 (range 8.6-10.4), TSH: 4.1 Unfortunately pt did not receive her normal home calcium supplements and calcium rich diet Resume home calcium supplements Ionized ca borderline low at 1.11. Will give additional dose of calcium carbonate this evening (7) Anxiety and depression: Plan: Continue home escitalopram (8) RODY (obstructive sleep apnea): Plan: CPAP HS DVT Prophylaxis Currently on SCDs in case of needing interventional injection or if surgical intervention warranted. PCP: Cherie VIZCAINO Admitted med-surg Dispo: Epidural inj today, PT reeval tomorrow with plans to return home with parents as they have a first floor set up, will need outpt therapy services I spent a total of 43 minutes reviewing notes, outpatient records, labs, medication, coordinating, documenting and providing care for this patient excluding time spent in the performance of separately billed services and excluding time spent by another provider/QHP. Pt was seen and examined in collaboration with Dr. Meraz, please see addendum Admission and Anticipated Discharge Date Admission Date: July 18, 2024 Subjective Pt was seen and examined in room 321-1. She feels her pain is much more controlled today, 06/28. She also reports less numbness to RLE. Her 83yr old Father is at bedside. She is getting an epidural inj today. Her plan is to return home with her parents until more on her feet as they have a first floor set up. She has not been adequately able to work with therapy yet. Denies f/c/s, chest pain, sob n/v/d. She is moving her bowels once daily. Review of Systems Review of Systems: All systems reviewed & are unremarkable except as noted in HPI & below Physical Exam Physical Exam: Gen: WD/WN, F, lying in bed, appears to be comfortable, NAD, A&O x3 HEENT: Normocephalic, atraumatic, conjunctivae moist, sclerae anicteric, mucous membranes moist. Lung: Clear to Auscultation bilaterally, no wheezes/rales/rhonchi Heart: Regular rate, regular rhythm, no murmurs, rubs, or gallops Abdomen: Soft, NT, ND +BS x 4 Extremities: No edema Skin: Warm, no rash, negative turgor. Results & Data Results & Data Vital Signs (Past 12 Hours) Vital Signs Temp Pulse Resp BP Pulse Ox O2 Del Method 07/19/24 22:27 36.8 C 73 16 119/75 98 Room Air Laboratory Results I have independently reviewed and interpreted patient's cbc, bmp Medications Administered Current Inpatient Medications Acetaminophen (Acetaminophen 500 Mg Tab) 1,000 mg PO Q8H [facility] Stop: 08/16/24 07:59 Last Admin: 07/20/24 08:07 Dose: 1,000 mg Bisacodyl (Bisacodyl 10 Mg Supp) 10 mg [place] DAILY PRN PRN Reason: Constipation Stop: 08/16/24 12:05 Calcium Carbonate (Calcium Carbonate 500 Mg Chewable Tab) 1,000 mg PO DAILY [facility] Stop: 08/17/24 08:59 Last Admin: 07/20/24 08:07 Dose: 1,000 mg Calcium Carbonate (Calcium Carbonate 500 Mg Chewable Tab) 1,000 mg PO PM [facility] Stop: 07/20/24 21:01 Calcium/Vitamin D (Calcium 600mg + Vit D 400 Iu Tab) 2 tab PO DAILY [facility] Stop: 08/17/24 08:59 Last Admin: 07/20/24 08:07 Dose: 2 tab Cetirizine HCl (Cetirizine Hcl 10 Mg Tablet) 10 mg PO DAILY PRN PRN Reason: allergies Stop: 08/16/24 12:34 Escitalopram Oxalate (Escitalopram Oxalate 20 Mg Tab) 20 mg PO HS [facility] Stop: 08/15/24 20:59 Last Admin: 07/19/24 20:24 Dose: 20 mg Gabapentin (Gabapentin 300 Mg Cap) 300 mg PO BID [facility] Stop: 08/18/24 08:59 Last Admin: 07/20/24 08:07 Dose: 300 mg Hydromorphone HCl (Hydromorphone Inj 0.5 Mg/0.5 Ml Syr) 0.5 mg IV Q3H PRN PRN Reason: Severe Pain (Scale 7, 8, 9,10) Stop: 07/30/24 09:26 Ketorolac Tromethamine (Ketorolac Tromethamine 15 Mg/Ml Vial) 15 mg IV Q6H PRN PRN Reason: Pain Stop: 07/22/24 09:55 Last Admin: 07/19/24 12:53 Dose: 15 mg Levothyroxine Sodium (Levothyroxine Sodium 112 Mcg Tablet) 112 mcg PO DAILYBB [facility] Stop: 08/16/24 06:29 Last Admin: 07/20/24 04:34 Dose: 112 mcg Lidocaine (Lidocaine 5% 1 Patch) 1 patch TD DAILY [facility] Stop: 08/15/24 20:24 Last Admin: 07/20/24 08:07 Dose: Not Given Magnesium Hydroxide (Magnesium Hydroxide Susp 30 Ml Udc) 30 ml PO DAILY PRN PRN Reason: Constipation Stop: 08/16/24 12:05 Methocarbamol (Methocarbamol 500 Mg Tablet) 500 mg PO TID [facility] Stop: 08/15/24 13:59 Last Admin: 07/20/24 08:07 Dose: 500 mg Miscellaneous (Remove Lidoderm Patch) 1 each N/A DAILY@2100 [facility] Stop: 08/15/24 20:59 Last Admin: 07/19/24 20:23 Dose: 1 each Miscellaneous (Remove Lidoderm Patch) 1 each N/A DAILY@2100 [facility] Stop: 08/16/24 08:59 Last Admin: 07/19/24 20:24 Dose: Not Given Naloxone HCl (Naloxone Hcl 0.4 Mg/1 Ml Vial/Carp) 0.1 mg IV UD PRN PRN Reason: Opiate Overdose Stop: 08/16/24 12:05 Ondansetron HCl (Ondansetron Inj 2 Mg/Ml 2 Ml Vial) 4 mg IV Q6H PRN PRN Reason: Nausea And Vomiting Stop: 08/17/24 07:41 Last Admin: 07/20/24 09:58 Dose: 4 mg Oxycodone HCl (Oxycodone Hcl Ir 5 Mg Tab (Immediate Release)) 5 mg PO Q4H PRN PRN Reason: Moderate Pain (Scale 4, 5, 6) Stop: 07/31/24 07:55 Last Admin: 07/19/24 22:29 Dose: 5 mg Polyethylene Glycol (Polyethylene (Miralax) 17 Gm Pack) 17 gm PO DAILY PRN PRN Reason: Constipation Stop: 08/17/24 00:00 Senna/Docusate Sodium (Docusate Sodium/Senna 50/8.6mg Tab) 2 tab PO [facility] Stop: 08/16/24 20:59 Last Admin: 07/19/24 20:24 Dose: 2 tab
--- NOTE | 2024-07-20 13:49 | Procedure Note ---
Procedure Note Date of Service July 20, 2024 LUMBAR TRANSFORAMINAL EPIDURAL STEROID INJECTION Diagnosis: Lumbar radiculitis due to L3/L4 disc herniation Level injected: Right L3/L4 transforaminal epidural steroid injection Surgeon: Dr. Cerrato Prior to starting, the Patients diagnosis and the procedure were reviewed with the patient in detail. Possible risks, complications and alternative therapies were also reviewed. Patients questions were answered. Informed consent was obtained. Allergies and medication list was reviewed. The patient was brought to the fluoroscopy room and placed in prone position on the table. Immediately prior to starting the procedure, a ``time out was conducted with the staff and the patient where the patient was identified, proposed procedure was verified, consent was reviewed and the proper site for the planned procedure was identified. Fluoroscopy was utilized in performing the procedure to assist the placement of the needle, to evaluate the final position of the needle prior to injection and to avoid intravascular injection. Monitors used included intermittent blood pressure with automated device, continuous pulse oximetry and level of consciousness. Patient was not given any intravenous sedation and constant verbal contact was maintained throughout the procedure. Biplanar fluoroscopy was used to assist in placement of the needle as well as to evaluate final needle position prior to the injection. On examination, no signs of skin breakdown or infection were noted at the injection site. Lumbar-sacral area was prepped with DuraPrep followed by Betadine solution. Sterile drapes were applied. The appropriate interspace and disk was identified in a true AP view. The fluoroscope was then rotated to obtain a decubitus view in such a manner so that the superior articular process of the inferior vertebra was bisecting the pars inter-articularis of the vertebra above in two. A 22 Gauge 5 inch curved (15 degrees) spinal needle was inserted through the skin and subcutaneous tissues, after infiltration of 2 cc of 2% Xylocaine MPF, and advanced in a co-axial technique. Needle tip was first placed on the infero-lateral margin of the pars inter-articularis. Once the bony margin was contacted, the C-arm was rotated to obtain a lateral view. The needle was slowly ``walked off the bone and advanced toward the anterior and superior aspect of the foramen. Patient did not experience any pain or paresthesia. Six inch micro bore tubing was attached to the needle and aspiration did not demonstrate CSF or blood. AP view was checked to ensure the needle tip was in close proximity to the nerve root in the proximal neural foramen lateral to the inferior articular process and in the 6 oclock position. 1 cc of Isovue 300 contrast was injected via the needle under live fluoroscopy. Spread of the contrast was noted in the epidural space and along the nerve root. Neither subdural or subarachnoid spread nor intravascular uptake was noted on plain fluoroscopy. Approximately 10 second digital subtraction angiogram at 8 f/s rate was done in AP view with additional contrast. No vascular uptake was noted. Next 80 mg (2 mL) of Kenalog was injected followed by 2 cc of 2% Xylocaine MPF to flush the needle. The patient did not experience pain during the injection. Adequate hemostasis was noted. A sterile Band-Aid was applied to the injection site. Patient was monitored for 30 minutes and discharged with an accompanying adult. Discharge instructions were reviewed with the patient/caregiver. Any specific questions were answered. Patient/caregiver voiced understanding of the instructions. Follow-up appointment has been scheduled. Coding Additional Codes Date of Service ([email or web address])
--- NOTE | 2024-07-20 13:53 | Pain Management Progress Note ---
Date of Service July 20, 2024 Assessment & Plan (1) Protrusion of lumbar intervertebral disc: Plan: * Right lower extremity radiculitis due to L3/L4 protruding disc. * Symptomatically improved. * Underwent transforaminal epidural injection today. * If otherwise ready, patient can be discharged today and will follow up at [facility] pain management clinic in 2 weeks. Present on Admission?: Yes Admission and Anticipated Discharge Date Admission Date: July 18, 2024 Subjective Patient reports improved symptoms today. She reports less pain and paresthesia in the left proximal lower extremity. She reports she has been able to bear weight with minimal pain. She denies requiring IV opiates. She is still receiving IV Keralac with good efficacy. Denies no new neurological symptoms in the lower extremity or bowel or bladder incontinence. She underwent a right L3/L4 lumbar transforaminal epidural injection uneventfully this morning. PG Care Time/CCT Total # of Minutes Spent Total Time Spent with Patient: Total time spent is greater than 50% in coordination of care (as documented) at patient's floor/unit and/or counseling patient: Coding Level of Care Code None Diagnoses Protrusion of lumbar intervertebral disc M51.26
[2024-07-20] MEDS: CALCIUM CARBONATE 500 MG CHEWABLE TAB PO SCH (19:56)
[2024-07-20 20:27] VITALS: TEMP 98.6
--- NOTE | 2024-07-21 08:09 | Pain Management Progress Note ---
Date of Service July 21, 2024 Assessment & Plan (1) Acute right lumbar radiculopathy: (2) Protrusion of lumbar intervertebral disc: Plan 1. Currently pleased with relief patient is experiencing status post the right L3-4 transforaminal CHRISTEL. Expectations were discussed and patient verbalized understanding. We discussed her ability to undergo repeat CHRISTEL in the future with symptom recurrence. All of her questions were answered. 2. Recommend she maintain gabapentin 300 mg twice daily in the outpatient setting 3. Patient may be discharged from pain management standpoint per hospitalist team 4. Patient has a scheduled follow-up in pain clinic on 08/05/2024 at 0800. Will see patient in pain clinic at that time or before as needed. Admission and Anticipated Discharge Date Admission Date: July 18, 2024 Subjective Mrs. Arais is a 58-year-old white female with low back and right lower extremity radicular pain who underwent a right L3-4 transforaminal CHRISTEL performed by Dr. Cerrato. Patient is reporting significant reduction in pain and paresthesia with improved ability to tolerate ambulatory activity since time of lumbar CHRISTEL. She is only utilize Tylenol for breakthrough pain since time of the procedure. She rates residual pain a 2-3/10. She has minimal residual axial pain and right lateral hip and thigh region discomfort. Patient denies any notable side effects from the procedure. No residual paresthesia. She denies fevers, chills or night sweats. Patient is eager for discharge at this time. Patient has been out of bed ambulating without limitation since time of CHRISTEL. Patient has no further constitutional complaints. Plan of care discussed with Dr. Jossie Strauss. Pain Assessment Pain Assessment Full Body Front + Back: 2 1. Low back pain 2. Right thigh radicular pain/paresthesia Pain scale - at its best (0-10): 2 Pain scale - at its worst (0-10): 3 Physical Exam 2 Physical Exam: General: Patient was sleeping upon any in the room. She was easily arousable. Speech and thought process appropriate. Mood and affect appropriate. Cognition intact. Patient was able to reposition herself in the bed without limitation and no increased pain. Back/spine: Patient was able to logroll towards her left side for visual inspection. Band-Aid was removed from site of injection. There is no evidence of erythema or edema. There is some minimal ecchymosis. She is nontender to palpation over the injection site. She has no focal midline or facet joint tenderness. Nontender in the paravertebral musculature. Lower extremity: Strength testing is 5/5 and equal with dorsiflexion, plantarflexion and hip flexion/extension. Sensation was intact to sharp and dull without deficit. Neurologic: Cranial nerves grossly intact. Ambulatory function not witnessed.
[2024-07-21 08:14] VITALS: PULSE 74; RESP 16; O2SAT 96
[2024-07-21] MEDS: CETIRIZINE HCL 10 MG TABLET PO PRN (10:44)
--- NOTE | 2024-07-21 10:49 | Discharge Summary ---
Discharge Summary Date of Service July 21, 2024 Principal Dx & Hospital Course #1 = Principal Diagnosis (1) Protrusion of lumbar intervertebral disc: (2) Abnormal CT scan, lumbar spine: (3) Acute right lumbar radiculopathy: Patient is 58-year-old female with PMH papillary thyroid cancer s/p thyroidectomy, postsurgical hypothyroidism, chronic hypocalcemia, anxiety, depression, RODY, obesity seen with right lower back, right groin and right upper extremity pain 07/16/24 CT L-spine and pelvis: No acute fracture or subluxation. At L3-L4 there is a far right lateral disc protrusion measuring 1.2 cm which likely displaces the adjacent L3 nerve root. No high-grade central canal or foraminal narrowing. 07/17/24: MRI Lumbar spine: Moderate size far right lateral disc herniation at L3- L4 which contacts the exiting right L3 nerve root. No additional disc herniations. Patent central canal. No lumbar spine fractures. Ortho spine consult. Per Dr Stapleton: Going to have physical therapy work with her today to attempt stairs. She does live in a split-level home. Will also consult interventional pain management for possible injection. We discussed that we would try an injection if this fails to improve her pain we may ultimately consider surgery for removal of the extraforaminal disc. She was seen and examined by Pain management and underwent Epidural steroid injection Pain management recommends continuing robaxin and gabapentin Plan to follow up with Pain management for possibel repeat CHRISTEL if needed along with outpatient PT #Leukocytosis WBC: 11.4. Improved from 12.5 yesterday Received steroids on 07/16/24 and is likely cause. No infectious symptoms at this time resolved #Hyperglycemia #Prediabetes Elevated morning glucose: 174 on 07/17/24. Was given steroids on day of admission. Today fasting glucose improved at 95 A1c: 6.1. Consistent with prediabetes. Patient wants normal diet. Will continue to monitor. If pt would require further steroids would have further discussion about following diabetic diet (4) Papillary carcinoma of thyroid: (5) Post-surgical hypothyroidism: S/P Thyroidectomy TSH: 0.2 Continue levothyroxine (6) Hypocalcemia: History of chronic hypocalcemia Per outpatient chart review: Outpatient workup included 09/03/22: PTH: 43 (range 16-77), ionized calcium: 4.8 (range 4.7-5.5), calcium: 8.4 (range 8.6-10.4), TSH: 4.1 Unfortunately pt did not receive her normal home calcium supplements and calcium rich diet Resume home calcium supplements (7) Anxiety and depression: Continue home escitalopram (8) RODY (obstructive sleep apnea): CPAP HS PCP: Cherie VIZCAINO Dispo: Discharge to home today with father I spent a total of 41 minutes reviewing notes, outpatient records, labs, medication, coordinating, documenting and providing care for this patient excluding time spent in the performance of separately billed services and excluding time spent by another provider/QHP. Pt was seen and examined in collaboration with Dr. Penn, please see addendum Notes For Next Care Provider Pt with radiculopathy secondary to lumbar disc protrusion. She was seen by orthospine and pain management. She underwent epidural steroid injection with improvement in symptoms. She is currently maintaining on Tylenol, Robaxin and Gabapentin. Medication Changes From Visit 1. Gabapentin 300mg by mouth twice daily. Next dose is due in the evening on 07/21/24. 2. Robaxin 500mg by mouth every 8 hours. Next dose is due around 2:00 p.m. on 07/21/24. Do not operate a motor vehicle while taking this medication as it may cause drowsiness. You may utilize Tylenol 1,000mg every 8 hours as needed for pain. You may also utilize Ibuprofen 400mg every 6-8 hours as needed for pain. It is recommended you continue to take a daily stool softener until bowel habits have returned to normal. Admission HPI Per Admitting Provider The patient is a 58-year-old female with a past medical history of anxiety and hypothyroidism who presents to the ED on 07/16/2024 with complaints of severe lower back pain. Patient reports about 2 days ago while she was resting in bed, she noticed some hip flexing pain. Patient reports she took Motrin and put a heating pad on her hip and went to sleep which helped. The next day, the pain returned and was severe. She was unable to sleep and Motrin did not help at all. 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 Does report sitting for long periods of time. Denies any chronic back pain. Denies any recent injury. Denies any saddle anesthesia or urinary retention or constipation. Denies any recent respiratory illness. She reports the pain is so bad she is unable to bear weight. Arrived to the ER today in a wheelchair. On arrival to the ED, labs remarkable for BUN 26, glucose 121, calcium 8.5 Urinalysis fairly unremarkable. Pelvis CT shows mild degenerative changes of the right hip. No acute findings Lumbar spine CT shows: 1. No acute fracture or subluxation. 2. At L3-L4 there is a far right lateral disc protrusion measuring 1.2 cm which likely displaces the adjacent L3 nerve root. 3. No high-grade central canal or foraminal narrowing. 4. Left nephrolithiasis. The patient will be admitted for pain control and evaluation by ortho-spine. Admission Exam Per Admitting Provider Constitutional: WD/WN, vitals as above Eyes: PERRL, conjunctivae normal, anicteric sclerae ENMT: external ear and nose normal, oropharynx normal Neck: trachea midline, no thyromegaly Respiratory: normal respiratory effort, lungs clear to auscultation Cardiovascular: RRR, no murmur, no edema Gastrointestinal (Abdomen): normal bowel sounds, soft, nontender, no hepatosplenomegaly Musculoskeletal: no cyanosis or clubbing, extremities motor strength 5/5 Skin: no rashes, warm and dry Neurologic: PERRL, EOMI, accommodation nl, no face palsy, no dysarthria Psychiatric: A+Ox3, euthymic affect Genitourinary: no vaginal lesions, no adnexal mass Lymphatic: no cervical or axillary lymphadenopathy Discharge Exam Gen: WD/WN, F, lying in bed, appears to be comfortable, NAD, A&O x3 HEENT: Normocephalic, atraumatic, conjunctivae moist, sclerae anicteric, mucous membranes moist. Lung: Clear to Auscultation bilaterally, no wheezes/rales/rhonchi Heart: Regular rate, regular rhythm, no murmurs, rubs, or gallops Abdomen: Soft, NT, ND +BS x 4 Extremities: No edema Skin: Warm, no rash, negative turgor. Updated Medication List Medication Instructions Recorded Confirmed Type levothyroxine 112 mcg tablet 112 mcg PO DAILY ##0 05/22/07 07/17/24 History escitalopram oxalate 20 mg tablet 20 mg PO HS 07/16/24 07/17/24 History ibuprofen 1 tab PO DIRECTED PRN Pain 07/16/24 07/17/24 History calcium 1,000 mg (as 2 tab PO DAILY 07/17/24 07/17/24 History carbonate)-vitamin D3 20 mcg (800 unit) tablet calcium carbonate (Tums E-X) 2 tab PO DAILY 07/17/24 07/17/24 History cetirizine 10 mg tablet 10 mg PO DAILY PRN allergies 07/17/24 07/17/24 History iron bis glycinate jamal 28 mg 1 cap PO DAILY 07/17/24 07/17/24 History iron-vit C 60 mg-FA 400 mcg-B12 8mcg cap (Gentle Iron) multivitamin 1 tab PO DAILY 07/17/24 07/17/24 History acetaminophen 500 mg tablet 1,000 mg (2 x 500 mg) PO Q8H #20 07/21/24 Rx (Tylenol Extra Strength) tabs gabapentin 300 mg capsule 300 mg PO BID 30 days #60 caps 07/21/24 Rx methocarbamol 500 mg tablet 500 mg PO TID 2 weeks #42 tabs 07/21/24 Rx Hospital Stay Data Consultations 07/16/24 09:21 ED Decision to Admit Stat 07/16/24 09:22 Consult Orthopedic Spine Surgery Routine 07/18/24 09:43 Consult Pain Management Routine Diagnostic Imagining Performed Lumbar Spine CT 07/16/24 08:04 CT lumbar spine wo con HISTORY: 58 years-old Female Low back pain into R hip/leg pain acute low back pain COMPARISON: CT pelvis of same day, CT abdomen and pelvis 08/20/2005 TECHNIQUE: Multiple axial CT images of the lumbar spine were obtained without IV contrast. A dose lowering technique was used consistent with the principals of [place]. FINDINGS: Left nephrolithiasis measuring up to 3 mm. No acute intra-abdominal or paraspinal abnormality. Mild degeneration of the SI joints. Mild spondylitic spurring and facet arthrosis. No acute fracture, subluxation or endplate erosion. There is suboptimal evaluation of the central canal and neural foramen by CT technique. L1-L2: No significant central canal or foraminal narrowing. L2-L3: No significant central canal or foraminal narrowing. L3-L4: Small posterior annular disc bulge. There is a right far lateral disc protrusion measuring 1.2 x 0.8 x 1.2 cm (image 206 series 3 image 23 of series 300). Mild adjacent deep tissue edema suggestive of acute or subacute etiology. This likely displaces the adjacent exiting L3 nerve root. Mild right foraminal narrowing. The central canal and left neuroforamen are patent. L4-L5: Tiny posterior annular disc bulge. No significant central canal or foraminal narrowing. L5-S1: Small posterior annular disc bulge. No significant central canal or foraminal narrowing. IMPRESSION: 1. No acute fracture or subluxation. 2. At L3-L4 there is a far right lateral disc protrusion measuring 1.2 cm which likely displaces the adjacent L3 nerve root. 3. No high-grade central canal or foraminal narrowing. 4. Left nephrolithiasis. ACT 112: Negative or not required by law. The above report was generated using voice recognition software. It may contain grammatical, syntax or spelling errors. Electronically signed by: Braeden Mcintosh M.D. 07/16/2024 8:[address] 07/16/24 08:04 CT pelvis wo con CLINICAL HISTORY: Low back pain into R hip/leg pain COMPARISON STUDY: None FINDINGS: There are mild degenerative changes at both hips without significant joint space narrowing, right greater than left. No fracture or dislocation. There is a tiny bone island at the right acetabulum. No significant osseous lesion or osteomyelitis seen. SI joints are unremarkable. No soft tissue abscess or hematoma seen. Uterus and adnexal regions are grossly unremarkable. Urinary bladder is nondistended. Visualized bowel shows no inflammation or obstruction. No pelvic free fluid. IMPRESSION: Mild degenerative changes at the right hip. No acute findings. ACT 112: Negative or not required by law. Electronically signed by: Vish Payan M.D. 07/16/2024 9:00 AM Lumbar Spine MRI 07/17/24 08:27 MRI OF THE LUMBAR SPINE WITHOUT CONTRAST CLINICAL HISTORY: Low back pain radiating into right lower extremity. COMPARISON STUDY: Lumbar spine CT July 16, 2024. TECHNIQUE: Utilizing a 1.5 Alina magnet and dedicated coil, multiplanar, multiecho imaging of the lumbar spine was performed without IV contrast. FINDINGS: For purposes of numbering on this exam, the L5-S1 disc space is assigned to axial image 27 of 30. Vertebral body heights are maintained within the lumbar spine fracture. There is no marrow replacement. There is no intracanalicular mass or fluid collection. Conus terminates at the upper L2 level. Paravertebral soft tissues are unremarkable. L1-2: The central canal and neural foramen are patent. L2-3: The central canal and neural foramen are patent L3-4: The central canal and left neural foramen are patent. There is a 0.9 x 0.6 x 0.5 cm far right lateral disc protrusion. This contacts the exiting right L3 nerve root. L4-5: Central canal and neural foramen are patent. There is mild facet arthrosis. L5-S1: The central canal and neural foramen are patent. IMPRESSION: 1. Moderate size far right lateral disc herniation at L3-L4 which contacts the exiting right L3 nerve root. This could be correlated with right L3 radiculopathy. 2. No additional disc herniations. Patent central canal. 3. No lumbar spine fractures. ACT 112: Negative or not required by law. Electronically signed by: Marco Summers M.D. 07/17/2024 11:42 AM Pending Results Patient Have Any Pending Studies at Discharge: No Discharge Instructions Given to Patient (Per Discharging Provider) MEDICATION CHANGES: 1. Gabapentin 300mg by mouth twice daily. Next dose is due in the evening on 07/21/24. 2. Robaxin 500mg by mouth every 8 hours. Next dose is due around 2:00 p.m. on 07/21/24. Do not operate a motor vehicle while taking this medication as it may cause drowsiness. You may utilize Tylenol 1,000mg every 8 hours as needed for pain. You may also utilize Ibuprofen 400mg every 6-8 hours as needed for pain. It is recommended you continue to take a daily stool softener until bowel habits have returned to normal. SUMMARY OF TEST RESULTS: You were admitted to the hospital due to severe back pain that radiated down your right leg. You were found to have a disc protrusion that was causing you discomfort. You were seen and evaluated by pain management and you were able to undergo an epidural steroid injection. It will take approximately 10-14 days to notice the full benefit of this. You are being discharged with close follow up with pain management and your primary care provider. You were seen by orthopedic surgeon Dr. Stapleton while in the hospital. If your symptoms continue and to not resolved despite current plan of care it is recommended you follow up with him as an outpatient. PENDING TEST RESULTS: None RECOMMENDATIONS FOR FOLLOW-UP: No driving until you are seen and cleared by your primary care provider due to leg weakness/numbness. Please follow up with your primary care provider as scheduled. Please follow up with pain management as scheduled. Please continue with outpatient physical therapy as prescribed. If your symptoms worsen please contact your depilatory painter. OTHER INSTRUCTIONS: Seek medical attention if you have: * temperature above 101 * chest pain or trouble breathing * abdominal pain, nausea, vomiting * diarrhea, dark stools or bloody stools * any unanswered questions or concerns Call 911 if symptoms are severe. Please take good care of yourself. It has been a pleasure taking care of you. Please take care of yourself. If you have any questions regarding your recent hospitalization please contact [facility] [address] and request [facility] @ [phone]. Total Time Total Time Spent Total Time Spent (In Minutes): 41 minutes Supervising Physician Co-Signing Physician Notes Patient is seen and examined on day of discharge. Her back pain is much improved. She is able to ambulate in the hallway. Offers no other complaints on the day of discharge. Physical Exam: Vitals signs as noted above General Appearance:Obese, no apparent distress Head: normocephalic, Atraumatic Eyes: normal inspection, EOMI Neck: supple, Trachea midline Respiratory/Chest: Normal breath sounds, CTA, No accessory muscle use Cardiovascular: S1, S2, No murmur Abdomen/GI:Soft, Non tender, Bowel sounds present Extremities/Musculoskeletal:normal inspection, no edema Neurologic/Psych:AAOX3, grossly no focal neurological deficits Skin: normal color, warm Acute right lumbar radiculopathy Secondary to disc protrusion Appreciate pain management, orthopedic spine surgery input Conservative management PT OT Pain control, muscle relaxants as needed Advised to follow-up with pain management, PCP on discharge Also advised to follow-up with Dr. Stapleton if no improvement with outpatient PT I personally interviewed and examined the patient at bedside. I have reviewed the advanced practitioner's documentation on the date of service referred in note and agree with plan. Patient's care is coordinated with Anahi Bee. Please refer to the documentation above for details of patient's presentation and for discussion of other issues. I spent a total [id number] coordinating, documenting, and providing care for this patient excluding time spent in the performance of separately billed services or time spent by another provider/QHP.
[2024-07-21 11:11] VITALS: BP 135/84
== END 2024-07-21 12:04 | disposition home or self-care (01) | DRG 552 ==
LOC: ED 07:37 → EDINP 07:37 → SUATTDRO 09:23 → EDINP 15:44 → 3E 16:15 → SUATTDRO 07-18 13:02